=== PATIENT | male | born 1945 | race African-American/Black ===

== ENCOUNTER 2017-01-20 17:59 | Emergency (ER) | payer BC ==
--- NOTE | 2017-01-20 18:21 | Emergency Department Record ---
History of Present Illness - General Chief complaint: Flu Like Symptoms Stated complaint: GARIBAY AND FEELING BAD ALL OVER Time Seen by Provider: 01/20/17 18:01 Source: Patient, RN notes reviewed Mode of Arrival: Ambulatory - History of Present Illness Initial comments: today wake up at 4 am, chilles,fever, coughing , sputum is clearNo chest pain but aches all over, PMH hypertension. Primary Dr is Dr. Neumann. No vomiting , no diarrhea and no nausea. Patient is shaking with a tremor. Patient had breathing test two weeks ago at [facility] and he has not heard the results. Stopped smoking 5 years ago. No heart troubles. Slight headache. Onset/Timin -: Hour(s) Location: Other Severity: Moderate Severity scale (1-10): 7 Quality: Other Consistency: Constant Improves with: Other Worsens with: Other Associated Symptoms: Headaches, Myalgias - Related Data Home Medications Medication Instructions Recorded Confirmed Last Taken Amlodipine Besylate 10 mg PO DAILY 01/21/15 01/20/17 01/20/17 Previous Rx's Medication Instructions Recorded Hydrocodone/Acetaminophen [[place] 1 tab PO Q6H PRN #15 tab 07/07/16 5mg/325mg] Allergies Allergy/AdvReac Type Severity Reaction Status Date / Time Penicillins Allergy PT UNSURE Verified 02/12/16 00:11 OF REACTION Travel Screening - Travel/Exposure Within Last 30 Days Have you traveled within the last 30 days?: No Review of Systems Reviewed: No additional complaints except as noted below Constitutional: Reports: As per HPI. Denies: Chills, Fever, Malaise, Night sweats, Weakness, Weight change Eyes: Reports: As per HPI. Denies: Eye discharge, Eye pain, Photophobia, Vision change ENT: Reports: Congestion Respiratory: Reports: Cough, Dyspnea Cardiovascular: Reports: As per HPI. Denies: Arrhythmia, Chest pain, Dyspnea on exertion, Edema, Murmurs, Orthopnea, Palpitations, Paroxysmal nocturnal dyspnea, Rheumatic Fever, Syncope Endocrine: Reports: As per HPI. Denies: Fatigue, Heat or cold intolerance, Polydipsia, Polyuria Gastrointestinal: Reports: As per HPI. Denies: Abdominal pain, Constipation, Diarrhea, Hematemesis, Hematochezia, Melena, Nausea, Vomiting Genitourinary: Reports: As per HPI. Denies: Dysuria, Frequency, Hematuria, Incontinence, Retention, Testicular pain, Testicular mass, Urgency Musculoskeletal: Reports: As per HPI. Denies: Arthralgia, Back pain, Gout, Joint swelling, Myalgia, Neck pain Skin: Reports: As per HPI. Denies: Bruising, Change in color, Change in hair/ nails, Lesions, Pruritus, Rash Neurological: Reports: As per HPI. Denies: Abnormal gait, Confusion, Headache, Numbness, Paresthesias, Seizure, Tingling, Tremors, Vertigo, Weakness Psychiatric: Reports: As per HPI. Denies: Anxiety, Auditory hallucinations, Depression, Homicidal thoughts, Suicidal thoughts, Visual hallucinations Hematological/Lymphatic: Reports: As per HPI. Denies: Anemia, Blood Clots, Easy bleeding, Easy bruising, Swollen glands Past Medical History - SOCIAL HISTORY Smoking Status: Former smoker Alcohol Use: Heavy Alcohol Use Comment: 2-3 "12 oz cans of Natural Light a day" Drug Use: Rare, Heavy Drug Use Detail:: Marijuana - RESPIRATORY Hx Respiratory Disorders: No - CARDIOVASCULAR Hx Cardio Disorders: Yes Hx Hypertension: Yes - NEURO Hx Neuro Disorders: No Comment:: patient states he has intermittent tremors - GI Hx GI Disorders: No - Hx Genitourinary Disorders: No - ENDOCRINE Hx Endocrine Disorders: No Hx Diabetes: No Hx Thyroid Disease: No - MUSCULOSKELETAL Hx Musculoskeletal Disorders: Yes Hx Gout: Yes Comment:: non compliant with medication/per patient - PSYCH Hx Psych Problems: No - HEMATOLOGY/ONCOLOGY Hx Hematology/Oncology Disorders: No Family Medical History Any Significant Family History?: Yes Hx Cancer: Father Physical Exam - General General Appearance: Alert, Oriented x3, Cooperative, Mild distress - Head Head exam: Normal inspection - Eye Eye exam: Normal appearance, PERRL Pupils: Normal accommodation - ENT ENT exam: Normal exam, Mucous membranes moist, Normal external ear exam, Normal orophraynx, TM's normal bilaterally Ear exam: Normal external inspection. negative: External canal tenderness Nasal Exam: Normal inspection. negative: Discharge, Sinus tenderness Mouth exam: Normal external inspection, Tongue normal Teeth exam: Normal inspection. negative: Dental caries Throat exam: Normal inspection. negative: Tonsillar erythema, Tonsillar exudate - Neck Neck exam: Normal inspection, Full ROM. negative: Tenderness - Respiratory Respiratory exam: Wheezes, Other (tachypnea). negative: Respiratory distress - Cardiovascular Cardiovascular Exam: Regular rate, Normal rhythm, Normal heart sounds - GI/Abdominal GI/Abdominal exam: Soft, Normal bowel sounds. negative: Tenderness - Rectal Rectal exam: Deferred - exam: Deferred - Extremities Extremities exam: Normal inspection, Full ROM, Normal capillary refill. negative: Tenderness - Back Back exam: Reports: Normal inspection, Full ROM. Denies: Muscle spasm, Rash noted, Tenderness - Neurological Neurological exam: Alert, Normal gait, Oriented X3, Reflexes normal - Psychiatric Psychiatric exam: Normal affect, Normal mood - Skin Skin exam: Dry, Intact, Normal color, Warm Course Vital Signs 01/20/17 18:02 Temperature 98.7 F Pulse Rate 94 H Respiratory 26 H Rate Blood Pressure 161/96 Pulse Ox [address] Mc at 7 pm Medical Decision Making - Lab Data Result diagrams: 01/20/17 18:23 01/20/17 18:23 Disposition Clinical Impression: Cough Dyspnea Qualifiers: Dyspnea type: shortness of breath Qualified Code(s): R06.02 - Shortness of breath Forms: Patient Portal Access
[2017-01-20] MEDS ORDERED: 0.9 % SODIUM CHLORIDE 1000ML 1,000 ML IV PRN (18:23)
[2017-01-20] MEDS ORDERED: IPRATROPIUM/ALBUTEROL (0.5MG/3MG) NEB INH ONE (18:24)
[2017-01-20] MEDS ORDERED: METHYLPREDNISOLONE PF 125MG/VIAL IVP ONE (18:40)
[2017-01-20 19:05] LABS: HEMATOCRIT 43.7 % (42.0-52.0); HEMOGLOBIN 15.2 gm/dl (14.0-18.0); MEAN CELL VOLUME 78.6 fl (81-97); MEAN CORPUSCULAR HEMOGLOBIN 27.3 pg (27-33); MEAN CORPUSCULAR HGB CONC 34.8 g/dl (32-36); PLATELET COUNT 314 K/uL (130-400); RED BLOOD COUNT 5.56 M/uL (4.40-5.70); RED CELL DISTRIBUTION WIDTH 14.9 % (11.5-14.5); WHITE BLOOD COUNT W/O DIFF 8.7 K/uL (4.2-12.2)
[2017-01-20 19:18] LABS: ANION GAP 4.8 (7-16); BLOOD UREA NITROGEN 9 mg/dL (9-20); CARBON DIOXIDE 32.2 mmol/L (22-30); CREATININE 1.1 mg/dL (0.66-1.25); EST GLOMERULAR FILTRATION RATE > 60 ml/min; GLUCOSE,RANDOM 97 mg/dL (70-110)
[2017-01-20 19:27] LABS: INFLUENZA A NEGATIVE (NEGATIVE); INFLUENZA B NEGATIVE (NEGATIVE)
[2017-01-20 19:30] LABS: TROPONIN I 0.013 ng/mL (0.00-0.034)
[2017-01-20 19:32] LABS: PLATELET ESTIMATE NORMAL (NORMAL)
[2017-01-20 19:51] LABS: URINE APPEARANCE CLEAR; URINE BILIRUBIN NEGATIVE (NEGATIVE); URINE BLOOD NEGATIVE (NEGATIVE); URINE COLOR YELLOW; URINE GLUCOSE (UA) NEGATIVE (NEGATIVE); URINE KETONE NEGATIVE (NEGATIVE); URINE LEUKOCYTE ESTERASE NEGATIVE (NEGATIVE); URINE NITRITE NEGATIVE (NEGATIVE); URINE UROBILINOGEN 0.2 E.U./dL (0.20 - 1.00)
[2017-01-20 19:53] LABS: AMPHETAMINE SCREEN URINE NOT DETECTED; BARBITURATE SCREEN URINE NOT DETECTED; BENZODIAZEPINE SCREEN URINE NOT DETECTED; COCAINE SCREEN URINE NOT DETECTED; METHADONE SCREEN URINE NOT DETECTED; METHAMPHETAMINE SCREEN NOT DETECTED; OPIATE SCREEN URINE NOT DETECTED; OXYCODONE SCREEN URINE NOT DETECTED; PHENCYCLIDINE SCREEN URINE NOT DETECTED; PROPOXYPHENE SCREEN URINE NOT DETECTED; THC SCREEN URINE NOT DETECTED; TRICYCLIC ANTIDEPRESSANT SCRN NOT DETECTED
[2017-01-20] MEDS ORDERED: ACETAMINOPHEN 500 MG TABLET PO ONE (20:07)
--- NOTE | 2017-01-20 20:41 | Emergency Department Record ---
History of Present Illness - General Chief complaint: Flu Like Symptoms Stated complaint: GARIBAY AND FEELING BAD ALL OVER Time Seen by Provider: 01/20/17 18:01 Source: Patient, RN notes reviewed Mode of Arrival: Ambulatory - History of Present Illness Onset/Timin -: Hour(s) Location: Other Severity: Moderate Severity scale (1-10): 7 Quality: Other Consistency: Constant Improves with: Other Worsens with: Other Associated Symptoms: Headaches, Myalgias - Related Data Home Medications Medication Instructions Recorded Confirmed Last Taken Amlodipine Besylate 10 mg PO DAILY 01/21/15 01/20/17 01/20/17 Previous Rx's Medication Instructions Recorded Hydrocodone/Acetaminophen [[place] 1 tab PO Q6H PRN #15 tab 07/07/16 5mg/325mg] Prednisone [Prednisone 20Mg] 20 mg PO BIDPC #8 tab 01/20/17 Allergies Allergy/AdvReac Type Severity Reaction Status Date / Time Penicillins Allergy PT UNSURE Verified 02/12/16 00:11 OF REACTION Travel Screening - Travel/Exposure Within Last 30 Days Have you traveled within the last 30 days?: No Review of Systems Constitutional: Reports: As per HPI. Denies: Chills, Fever, Malaise, Night sweats, Weakness, Weight change Eyes: Reports: As per HPI. Denies: Eye discharge, Eye pain, Photophobia, Vision change ENT: Reports: Congestion Respiratory: Reports: Cough, Dyspnea Cardiovascular: Reports: As per HPI. Denies: Arrhythmia, Chest pain, Dyspnea on exertion, Edema, Murmurs, Orthopnea, Palpitations, Paroxysmal nocturnal dyspnea, Rheumatic Fever, Syncope Endocrine: Reports: As per HPI. Denies: Fatigue, Heat or cold intolerance, Polydipsia, Polyuria Gastrointestinal: Reports: As per HPI. Denies: Abdominal pain, Constipation, Diarrhea, Hematemesis, Hematochezia, Melena, Nausea, Vomiting Genitourinary: Reports: As per HPI. Denies: Dysuria, Frequency, Hematuria, Incontinence, Retention, Testicular pain, Testicular mass, Urgency Musculoskeletal: Reports: As per HPI. Denies: Arthralgia, Back pain, Gout, Joint swelling, Myalgia, Neck pain Skin: Reports: As per HPI. Denies: Bruising, Change in color, Change in hair/ nails, Lesions, Pruritus, Rash Neurological: Reports: As per HPI. Denies: Abnormal gait, Confusion, Headache, Numbness, Paresthesias, Seizure, Tingling, Tremors, Vertigo, Weakness Psychiatric: Reports: As per HPI. Denies: Anxiety, Auditory hallucinations, Depression, Homicidal thoughts, Suicidal thoughts, Visual hallucinations Hematological/Lymphatic: Reports: As per HPI. Denies: Anemia, Blood Clots, Easy bleeding, Easy bruising, Swollen glands Past Medical History - SOCIAL HISTORY Smoking Status: Former smoker Alcohol Use: Heavy Alcohol Use Comment: 2-3 "12 oz cans of Natural Light a day" Drug Use: Rare, Heavy Drug Use Detail:: Marijuana - RESPIRATORY Hx Respiratory Disorders: No - CARDIOVASCULAR Hx Cardio Disorders: Yes Hx Hypertension: Yes - NEURO Hx Neuro Disorders: No Comment:: patient states he has intermittent tremors - GI Hx GI Disorders: No - Hx Genitourinary Disorders: No - ENDOCRINE Hx Endocrine Disorders: No Hx Diabetes: No Hx Thyroid Disease: No - MUSCULOSKELETAL Hx Musculoskeletal Disorders: Yes Hx Gout: Yes Comment:: non compliant with medication/per patient - PSYCH Hx Psych Problems: No - HEMATOLOGY/ONCOLOGY Hx Hematology/Oncology Disorders: No Family Medical History Any Significant Family History?: Yes Hx Cancer: Father Course Vital Signs 01/20/17 01/20/17 01/20/17 18:02 18:25 20:11 Temperature 98.7 F 98.2 F Pulse Rate 94 H 96 H Pulse Rate [ 88 Pulse Ox Probe] Respiratory 26 H 18 32 H Rate Blood Pressure 161/96 Blood Pressure 147/110 [Left Arm] Pulse Ox 94 L 99 93 L - Reevaluation(s) Reevaluation #1: 01/20/17 20:36 pt is doing better and is ready to go home. Medical Decision Making - Lab Data Result diagrams: 01/20/17 18:40 01/20/17 18:40 Lab Results 01/20/17 01/20/17 01/20/17 Range/Units 13:40 18:40 18:40 WBC 8.7 (4.2-12.2) K/uL RBC 5.56 (4.40-5.70) M/uL Hgb 15.2 (14.0-18.0) gm/dl Hct 43.7 (42.0-52.0) % MCV 78.6 L (81-97) fl MCH 27.3 (27-33) pg MCHC 34.8 (32-36) g/dl RDW 14.9 H (11.5-14.5) % Plt Count 314 (130-400) K/uL MPV 9.0 (7.4-10.4) fl Neutrophils % 68.0 (47-80) % Lymphocytes % 16.0 (16-45) % Monocytes % 15.0 H (0-9) % Eosinophils % 1.0 (0-6) % Basophils % Not Reportable Platelet Estimate Normal (NORMAL) RBC Morphology Normal APTT 25.30 (24.5-39.1) SECONDS Sodium (136-145) mmol/L Potassium (3.5-5.1) mmol/L Chloride (98-107) mmol/L Carbon Dioxide (22-30) mmol/L Anion Gap (7-16) BUN (9-20) mg/dL Creatinine (0.66-1.25) mg/dL Estimated GFR ml/min Random Glucose (70-110) mg/dL Calcium (8.5-10.1) mg/dL CK-MB (CK-2) (0-6) ug/L Troponin I (0.00-0.034) ng/mL Urine Color Urine Appearance Urine pH (5.0-8.0) Ur Specific [place] (1.002-1.030) Urine Protein (NEGATIVE) Urine Glucose (UA) (NEGATIVE) Urine Ketones (NEGATIVE) Urine Blood (NEGATIVE) Urine Nitrite (NEGATIVE) Urine Bilirubin (NEGATIVE) Urine Urobilinogen (0.20 - 1.00) E.U./dL Ur Leukocyte Esterase (NEGATIVE) Urine Opiates Screen Ur Oxycodone Screen Urine Methadone Screen Ur Propoxyphene Screen Ur Barbituates Screen Ur Tricyclics Screen Ur Phencyclidine Scrn Ur Amphetamine Screen U Methamphetamines Scrn U Benzodiazepines Scrn Urine Cocaine Screen Urine Cannabis Screen Ethyl Alcohol (0-0.010) g/dL Influenza Type A Ag (NEGATIVE) Influenza Type B Ag (NEGATIVE) 01/20/17 01/20/17 01/20/17 Range/Units 18:40 18:40 19:10 WBC (4.2-12.2) K/uL RBC (4.40-5.70) M/uL Hgb (14.0-18.0) gm/dl Hct (42.0-52.0) % MCV (81-97) fl MCH (27-33) pg MCHC (32-36) g/dl RDW (11.5-14.5) % Plt Count (130-400) K/uL MPV (7.4-10.4) fl Neutrophils % (47-80) % Lymphocytes % (16-45) % Monocytes % (0-9) % Eosinophils % (0-6) % Basophils % Platelet Estimate (NORMAL) RBC Morphology APTT (24.5-39.1) SECONDS Sodium 133 L (136-145) mmol/L Potassium 4.3 (3.5-5.1) mmol/L Chloride 96 L (98-107) mmol/L Carbon Dioxide 32.2 H (22-30) mmol/L Anion Gap 4.8 L (7-16) BUN 9 (9-20) mg/dL Creatinine 1.1 (0.66-1.25) mg/dL Estimated GFR > 60 ml/min Random Glucose 97 (70-110) mg/dL Calcium 8.9 (8.5-10.1) mg/dL CK-MB (CK-2) 1.0 (0-6) ug/L Troponin I 0.013 (0.00-0.034) ng/mL Urine Color Urine Appearance Urine pH (5.0-8.0) Ur Specific [place] (1.002-1.030) Urine Protein (NEGATIVE) Urine Glucose (UA) (NEGATIVE) Urine Ketones (NEGATIVE) Urine Blood (NEGATIVE) Urine Nitrite (NEGATIVE) Urine Bilirubin (NEGATIVE) Urine Urobilinogen (0.20 - 1.00) E.U./dL Ur Leukocyte Esterase (NEGATIVE) Urine Opiates Screen Ur Oxycodone Screen Urine Methadone Screen Ur Propoxyphene Screen Ur Barbituates Screen Ur Tricyclics Screen Ur Phencyclidine Scrn Ur Amphetamine Screen U Methamphetamines Scrn U Benzodiazepines Scrn Urine Cocaine Screen Urine Cannabis Screen Ethyl Alcohol 0.000 (0-0.010) g/dL Influenza Type A Ag Negative (NEGATIVE) Influenza Type B Ag Negative (NEGATIVE) 01/20/17 01/20/17 Range/Units 19:52 19:52 WBC (4.2-12.2) K/uL RBC (4.40-5.70) M/uL Hgb (14.0-18.0) gm/dl Hct (42.0-52.0) % MCV (81-97) fl MCH (27-33) pg MCHC (32-36) g/dl RDW (11.5-14.5) % Plt Count (130-400) K/uL MPV (7.4-10.4) fl Neutrophils % (47-80) % Lymphocytes % (16-45) % Monocytes % (0-9) % Eosinophils % (0-6) % Basophils % Platelet Estimate (NORMAL) RBC Morphology APTT (24.5-39.1) SECONDS Sodium (136-145) mmol/L Potassium (3.5-5.1) mmol/L Chloride (98-107) mmol/L Carbon Dioxide (22-30) mmol/L Anion Gap (7-16) BUN (9-20) mg/dL Creatinine (0.66-1.25) mg/dL Estimated GFR ml/min Random Glucose (70-110) mg/dL Calcium (8.5-10.1) mg/dL CK-MB (CK-2) (0-6) ug/L Troponin I (0.00-0.034) ng/mL Urine Color Yellow Urine Appearance Clear Urine pH 6.5 (5.0-8.0) Ur Specific [place] 1.020 (1.002-1.030) Urine Protein 30 mg/dl H (NEGATIVE) Urine Glucose (UA) Negative (NEGATIVE) Urine Ketones Negative (NEGATIVE) Urine Blood Negative (NEGATIVE) Urine Nitrite Negative (NEGATIVE) Urine Bilirubin Negative (NEGATIVE) Urine Urobilinogen 0.2 (0.20 - 1.00) E.U./dL Ur Leukocyte Esterase Negative (NEGATIVE) Urine Opiates Screen Not detected Ur Oxycodone Screen Not detected Urine Methadone Screen Not detected Ur Propoxyphene Screen Not detected Ur Barbituates Screen Not detected Ur Tricyclics Screen Not detected Ur Phencyclidine Scrn Not detected Ur Amphetamine Screen Not detected U Methamphetamines Scrn Not detected U Benzodiazepines Scrn Not detected Urine Cocaine Screen Not detected Urine Cannabis Screen Not detected Ethyl Alcohol (0-0.010) g/dL Influenza Type A Ag (NEGATIVE) Influenza Type B Ag (NEGATIVE) Disposition Disposition: Discharge Clinical Impression: Cough, Chronic obstructive pulmonary disease with acute exacerbation Dyspnea Qualifiers: Dyspnea type: shortness of breath Qualified Code(s): R06.02 - Shortness of breath Disposition: Home, Self-Care Condition: (1) Good Instructions: Chronic Obstructive Pulmonary Disease (ED), Pulmonary Fibrosis ( ED) Additional Instructions: 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 return sooner if worse. Prescriptions: Prednisone [Prednisone 20Mg] 20 mg PO BIDPC #8 tab Forms: Patient Portal Access
--- NOTE | 2017-01-22 13:27 | RADIOLOGY REPORT ---
EXAM: CHEST, TWO VIEWS HISTORY: PATIENT HAS A HEADACHE IN THE FOREHEAD. TECHNIQUE: Two views of the chest were provided along with the comparison study dated 07/07/16. FINDINGS: The cardiomediastinal silhouette is within normal limits for size and contour. Tortuosity of the thoracic aorta is noted. The sarkis appear unremarkable. Diffuse interstitial prominence is again noted suggesting chronic interstitial disease. No pneumothorax is noted. No obvious new, focal areas of consolidation are identified. No new pleural effusions are identified. IMPRESSION: FINDINGS ARE CONSISTENT WITH PULMONARY FIBROSIS. NO NEW AREAS OF FOCAL CONSOLIDATION OR PLEURAL EFFUSIONS ARE IDENTIFIED. NO PNEUMOTHORAX IS NOTED. FOLLOW-UP PA AND LATERAL VIEWS OF THE CHEST CAN BE OBTAINED IF CLINICALLY INDICATED. JOB NUMBER: [id number] MTDD
== END 2017-01-20 20:47 | disposition home or self-care (01) ==
LOC: ER 17:59
DX: J44.1 Chronic obstructive pulmonary disease with (acute) exacerbation (principal); R06.02 Shortness of breath; I10 Essential (primary) hypertension; Z87.891 Personal history of nicotine dependence; Z79.899 Other long term (current) drug therapy
CPT/HCPCS: 99284 ×2; 96374; 85730; 82553; 84484; 80048; 81003; 80305; 87400; 85027; 71020; 94640; 93005; 93010; G0480; 80320; J2930

== ENCOUNTER 2017-01-26 09:55 | Inpatient (IN) | payer BC ==
[2017-01-26] MEDS ORDERED: IPRATROPIUM/ALBUTEROL (0.5MG/3MG) NEB INH ONE (10:13)
[2017-01-26] MEDS ORDERED: METHYLPREDNISOLONE PF 125MG/VIAL IVP ONE (10:17)
--- NOTE | 2017-01-26 10:21 | Emergency Department Record ---
History of Present Illness - General Chief Complaint: Difficulty Breathing Stated Complaint: DIFFICULTY BREATHING Time Seen by Provider: 01/26/17 10:13 Source: Patient Mode of Arrival: Ambulatory Limitations: No limitations - History of Present Illness Initial Comments: 71 yo male presents to ED with a CC of difficulty breathing and cough symptoms for the past several days. Patient denies fevers or chills, and denies previous heart or lung problems. Patient reports productive cough symptoms and difficulty breathing for 5 days, denies chest discomfort or pain symptoms. Patient reports a previous history of HTN. MD Complaint: Cough, Shortness of breath Onset/Timin -: Days(s) Radiation: Other Severity scale (1-10): 10 Quality: Aching Consistency: Constant Improves With: Nothing Worsens With: Coughing Associated Symptoms: Denies other symptoms Treatments Prior to Arrival: None - Related Data Home Oxygen Therapy: No Home Medications Medication Instructions Recorded Confirmed Last Taken Amlodipine Besylate 10 mg PO DAILY 01/21/15 01/26/17 01/25/17 Previous Rx's Medication Instructions Recorded Hydrocodone/Acetaminophen [[place] 1 tab PO Q6H PRN #15 tab 07/07/16 5mg/325mg] Allergies Allergy/AdvReac Type Severity Reaction Status Date / Time Penicillins Allergy PT UNSURE Verified 02/12/16 00:11 OF REACTION Travel Screening - Travel/Exposure Within Last 30 Days Have you traveled within the last 30 days?: No - Travel/Exposure Within Last Year Have you traveled outside the [place] in the last year?: No - Additonal Travel Details Have you been exposed to anyone with a communicable illness?: No - Travel Symptoms Symptom Screening: None Review of Systems Constitutional: Denies: Chills, Fever, Malaise, Night sweats Eyes: Denies: Eye discharge, Eye pain ENT: Reports: Congestion. Denies: Ear pain, Epistaxis Respiratory: Reports: Cough, Dyspnea, Wheezes Cardiovascular: Reports: Dyspnea on exertion. Denies: Chest pain Endocrine: Denies: Fatigue, Heat or cold intolerance Gastrointestinal: Denies: Abdominal pain, Nausea, Vomiting Genitourinary: Denies: Incontinence, Retention, Testicular pain Musculoskeletal: Denies: Arthralgia, Back pain, Gout, Joint swelling Skin: Denies: Bruising, Change in color Neurological: Denies: Abnormal gait, Confusion, Headache, Seizure Psychiatric: Denies: Anxiety Hematological/Lymphatic: Denies: Anemia, Blood Clots Past Medical History - SOCIAL HISTORY Smoking Status: Former smoker Alcohol Use: Heavy Drug Use: None - RESPIRATORY Hx Respiratory Disorders: No - CARDIOVASCULAR Hx Cardio Disorders: Yes Hx Hypertension: Yes - NEURO Hx Neuro Disorders: No Comment:: patient states he has intermittent tremors - GI Hx GI Disorders: No - Hx Genitourinary Disorders: No - ENDOCRINE Hx Endocrine Disorders: No Hx Diabetes: No Hx Thyroid Disease: No - MUSCULOSKELETAL Hx Musculoskeletal Disorders: Yes Hx Gout: Yes Comment:: non compliant with medication/per patient - PSYCH Hx Psych Problems: No - HEMATOLOGY/ONCOLOGY Hx Hematology/Oncology Disorders: No Family Medical History Any Significant Family History?: No Hx Cancer: Father Physical Exam - General General Appearance: Alert, Oriented x3, Cooperative, Moderate distress Limitations: No limitations - Head Head exam: Atraumatic, Normocephalic, Normal inspection Head exam detail: negative: Abrasion, Contusion, Infante's sign, General tenderness, Hematoma, Laceration - Eye Eye exam: Normal appearance. negative: Conjunctival injection, Periorbital swelling, Periorbital tenderness, Scleral icterus - ENT Ear exam: negative: Auricular hematoma, Auricular trauma Nasal Exam: negative: Active bleeding, Discharge, Dried blood, Foreign body Mouth exam: negative: Drooling, Laceration, Muffled voice, Tongue elevation - Neck Neck exam: Normal inspection. negative: Meningismus, Tenderness - Respiratory Respiratory exam: Decreased breath sounds, Other (crackles right upper/lower lung mackenzie) - Cardiovascular Cardiovascular Exam: Regular rate, Normal rhythm, Normal heart sounds - GI/Abdominal GI/Abdominal exam: Soft. negative: Rebound, Rigid, Tenderness - Rectal Rectal exam: Deferred - exam: Deferred - Extremities Extremities exam: Normal inspection. negative: Calf tenderness, Pedal edema, Tenderness - Back Back exam: Denies: CVA tenderness (R), CVA tenderness (L) - Neurological Neurological exam: Alert, Normal gait, Oriented X3 - Psychiatric Psychiatric exam: Normal affect, Normal mood - Skin Skin exam: Normal color. negative: Abrasion Type of lesion: negative: abrasion Course Vital Signs 01/26/17 09:59 Temperature 99.1 F Pulse Rate 95 H Respiratory 32 H Rate Blood Pressure 181/112 Pulse Ox 88 L - Reevaluation(s) Reevaluation #1: 01/26/17 11:05 CXR: Findings c/w pulmonary fibrosis, no acute findings. Reevaluation #2: 01/26/17 11:09 Labs reviewed, CO2 34, likely c/w chronic PCO2 retention. Labs are otherwise grossly unremarkable for an acute process. Reevaluation #3: 01/26/17 11:13 EKG: NSR 83 Normal axis, normal intervals T wave inversion AVL, V5-V6 Unchanged from 01/20/17. Reevaluation #4: 01/26/17 11:32 Ambulation trial performed, biox 91-93% on RA, however patient's respiratory rate increased following trial to 32 breaths/minute. Will discuss admission for observation for probable COPD exacerbation. Reevaluation #5: 01/26/17 11:38 Case was discussed with Dr. Norris, will admit for observation pending RSV/ Influenza results. Medical Decision Making - Lab Data Result diagrams: 01/26/17 10:30 01/26/17 10:30 Disposition Disposition: Admit Clinical Impression: COPD with acute exacerbation Disposition: Still a Patient at [facility] Decision to Admit: Admit from ER Decision to Admit Date: 01/26/17 Decision to Admit Time: 11:34 Forms: Patient Portal Access Time of Disposition: 11:34
[2017-01-26] MEDS ORDERED: 0.9 % SODIUM CHLORIDE 1000ML 1,000 ML IV SCH (10:30)
[2017-01-26 10:50] LABS: HEMATOCRIT 45.4 % (42.0-52.0); HEMOGLOBIN 15.6 gm/dl (14.0-18.0); MEAN CELL VOLUME 79.4 fl (81-97); MEAN CORPUSCULAR HGB CONC 34.4 g/dl (32-36); MEAN PLATELET VOLUME 9.8 fl (7.4-10.4); PLATELET COUNT 274 K/uL (130-400); RED BLOOD COUNT 5.72 M/uL (4.40-5.70); RED CELL DISTRIBUTION WIDTH 14.9 % (11.5-14.5)
[2017-01-26 10:52] LABS: MEAN CORPUSCULAR HEMOGLOBIN 27.2 pg (27-33)
[2017-01-26 11:03] LABS: ALB/GLOB RATIO 1.2 (1.1-1.8); ALBUMIN 4.1 gm/dL (3.5-5.0); ALKALINE PHOSPHATASE 99 U/L (38-126); ALT/SGPT 25 U/L (21-72); ANION GAP 7.1 (7-16); AST/SGOT 26 U/L (17-59); BILIRUBIN,TOTAL 0.63 mg/dL (0.2-1.3); BLOOD UREA NITROGEN 12 mg/dL (9-20); CARBON DIOXIDE 33.9 mmol/L (22-30); CREATININE 1.1 mg/dL (0.66-1.25); EST GLOMERULAR FILTRATION RATE > 60 ml/min; GLUCOSE,RANDOM 97 mg/dL (70-110); TOTAL PROTEIN 7.5 gm/dL (6.3-8.2)
[2017-01-26 11:59] LABS: INFLUENZA A NEGATIVE (NEGATIVE); INFLUENZA B NEGATIVE (NEGATIVE)
[2017-01-26] MEDS ORDERED: HYDROCODONE/APAP 5/325MG TABLET PO PRN (13:46)
[2017-01-26] MEDS ORDERED: ALBUTEROL SULFATE (0.083%) 2.5 MG/3 ML NEB INH PRN (13:46)
[2017-01-26] MEDS: IPRATROPIUM/ALBUTEROL (0.5MG/3MG) NEB INH SCH ×2 (14:49→18:49)
[2017-01-26] MEDS: 0.9 % SODIUM CHLORIDE 1000ML 1,000 ML IV PRN (16:44)
[2017-01-26] MEDS ORDERED: METHYLPREDNISOLONE PF 125MG/VIAL IVP SCH (18:00)
[2017-01-26] MEDS: LEVOFLOXACIN/D5W 750 MG in DEXTROSE 1 BAG IVPB SCH (19:04)
[2017-01-26] MEDS: METHYLPREDNISOLONE PF 125MG/VIAL IVP SCH (23:07)
[2017-01-27] MEDS: METHYLPREDNISOLONE PF 125MG/VIAL IVP SCH ×5 (00:39→23:04)
[2017-01-27] MEDS ORDERED: DIPHENHYDRAMINE HCL 25 MG CAPSULE PO PRN (01:49)
[2017-01-27] MEDS: 0.9 % SODIUM CHLORIDE 1000ML 1,000 ML IV PRN ×2 (04:10→17:07)
[2017-01-27] MEDS: IPRATROPIUM/ALBUTEROL (0.5MG/3MG) NEB INH SCH ×6 (05:32→23:30)
--- NOTE | 2017-01-27 07:14 | RADIOLOGY REPORT ---
EXAM: AP CHEST HISTORY: DIFFICULTY BREATHING, ACUTE GENERALIZED CHEST PAIN ON PREDNISONE. TECHNIQUE: AP view of the chest was obtained. Comparison: Chest CT 07/07/16, chest x-ray 01/20/17. FINDINGS: Fine coarse reticular opacity in the peripheral lung mackenzie consistent with mild to moderate pulmonary fibrosis. No dense infiltrate. The cardiac silhouette is moderately enlarged. The diaphragm and osseous structures are unremarkable. IMPRESSION: MILD TO MODERATE PULMONARY FIBROSIS. CARDIOMEGALY. NO ACUTE PROCESS. JOB NUMBER: [id number] MTDD
[2017-01-27] MEDS: LEVOFLOXACIN/D5W 750 MG in DEXTROSE 1 BAG IVPB SCH (09:33)
[2017-01-27] MEDS: AMLODIPINE BESYLATE 5MG TAB PO SCH (09:35)
[2017-01-27] MEDS ORDERED: METHYLPREDNISOLONE PF 125MG/VIAL IVP SCH ×2 (10:00)
[2017-01-27] MEDS: OSTELTAMIVIR 75 MG CAP PO SCH ×2 (12:18→22:42)
--- NOTE | 2017-01-27 14:54 | History & Physical ---
History of Present Illness - Date of Service Date of Service for History & Physical: 01/28/17 - History of Present Illness Admitting Diagnosis: COPD exacerbation History of Present Illness: 71 y/o M admitted for COPD exacerbation. PMH: HTN, questionable COPD, former smoker, ETOH use, gout. History obtained from patient. Presented to ED for 5 day history of cough, chest congestion, body aches and progressive DOROTHY. Was seen by PCP and given oral steroids with no improvement. Upon arrival to ED T 99.1, P 95, RR 32, BP 181/112, SPO2 88% RA. WBC 8.o, hgb 15.6, hct 45.4, plt 274, CO2 33.9, Cl 95. Influenza PCR sent to lab. CXR c/w pulmonary fibrosis, no acute findings. EKG NSR, t wave inversion AVL, V5-V6 unchanged from 01/20/17. Pt presented with 88-89% RA. Pt placed on 2L O2. Sats increased to 97%.ED ambulatory trial on RA with biox 91-93% but RR increased with 32 breaths/min. Patient's oxygen improved after given DuoNeb and oxygen in the ED. 01/27/17- Patient transferred to the floor 01/26. Laying in bed comfortably. Reports breathing has improved since yesterday. Has been recently referred to a lurer in [place] for work up of possible COPD but has not seen for initial appointment yet. 2 weeks ago had PFT done at [facility] in preparation for pulmonology appointment. Was previously hospitalized for respiratory difficulty about a month ago. These records are not available at this time. Is a previous smoker. 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 ETOH history of 2-3 12oz cans of beer per day, last drink 2-3 days ago. Has been on steroids in the last 30 days so Solumedrol 0.5mg/kg q 6 hrs initiated, Levaquin 750mg IVPB started, DuoNeb q 4 hrs WA and albuterol neb q 2 hrs PRN continued from ED. Admitted for further medical management PCP: Dr Radhika Neumann Travel Screening - Travel/Exposure Within Last 30 Days Have you traveled within the last 30 days?: No - Travel/Exposure Within Last Year Have you traveled outside the [place] in the last year?: No - Additonal Travel Details Have you been exposed to anyone with a communicable illness?: No - Travel Symptoms Symptom Screening: None Review of Systems Constitutional: Denies: Chills, Fever, Malaise, Night sweats Eyes: Denies: Eye discharge, Eye pain ENT: Reports: Congestion. Denies: Ear pain, Epistaxis Respiratory: Reports: Cough, Dyspnea, Wheezes Cardiovascular: Reports: Dyspnea on exertion. Denies: Chest pain Endocrine: Denies: Fatigue, Heat or cold intolerance Gastrointestinal: Denies: Abdominal pain, Nausea, Vomiting Genitourinary: Denies: Incontinence, Retention, Testicular pain Musculoskeletal: Denies: Arthralgia, Back pain, Gout, Joint swelling Skin: Denies: Bruising, Change in color Neurological: Denies: Abnormal gait, Confusion, Headache, Seizure Psychiatric: Denies: Anxiety Hematological/Lymphatic: Denies: Anemia, Blood Clots Past Medical History - SOCIAL HISTORY Smoking Status: Former smoker Alcohol Use: Occassional Alcohol Use Comment: States drinks three beer daily Drug Use: None - RESPIRATORY Hx Respiratory Disorders: No - CARDIOVASCULAR Hx Cardio Disorders: Yes Hx Hypertension: Yes - NEURO Hx Neuro Disorders: No Comment:: patient states he has intermittent tremors - GI Hx GI Disorders: No - Hx Genitourinary Disorders: No - ENDOCRINE Hx Endocrine Disorders: No Hx Diabetes: No Hx Thyroid Disease: No - MUSCULOSKELETAL Hx Musculoskeletal Disorders: Yes Hx Gout: Yes Comment:: non compliant with medication/per patient - PSYCH Hx Psych Problems: No - HEMATOLOGY/ONCOLOGY Hx Hematology/Oncology Disorders: No Family Medical History Any Significant Family History?: No Hx Cancer: Father Hx Stroke: Mother H&P Meds/Allergies - Allergies Allergies: Allergies Allergy/AdvReac Type Severity Reaction Status Date / Time Penicillins Allergy PT UNSURE Verified 02/12/16 00:11 OF REACTION - Home Medications Home Medications Medication Instructions Recorded Confirmed Last Taken Amlodipine Besylate 10 mg PO DAILY 01/21/15 01/26/17 01/25/17 Previous Rx's Medication Instructions Recorded Hydrocodone/Acetaminophen [[place] 1 tab PO Q6H PRN #15 tab 07/07/16 5mg/325mg] - Active Medications Active Medications: Current Medications Hydrocodone Bitart/Acetaminophen ([place] 5mg/325mg) 1 each PO Q6H PRN PRN Reason: Pain - General Albuterol Sulfate () 2.5 mg INH RESP.Q4H PRN PRN Reason: DIFFICULTY IN BREATHING Albuterol/Ipratropium (Duoneb) 3 ml INH RESP.Q4H.WA [facility] Last Admin: 01/27/17 14:23 Dose: 3 ml Amlodipine Besylate (Norvasc) 10 mg PO DAILY [facility] Last Admin: 01/27/17 09:35 Dose: 10 mg Diphenhydramine HCl (Benadryl Capsule) 25 mg PO Q4H PRN PRN Reason: URTICARIA/INSOMNIA Sodium Chloride () 1,000 mls @ 100 mls/hr IV .Q10H PRN PRN Reason: LARGE VOLUME IV Last Admin: 01/27/17 04:10 Dose: 100 mls/hr Levofloxacin/Dextrose 750 mg/ (Glucose) 150 mls @ 125 mls/hr IVPB DAILY [facility] Stop: 01/31/17 16:46 Last Admin: 01/27/17 09:33 Dose: 125 mls/hr Methylprednisolone Sodium Succinate (Solu-Medrol) 46 mg IVP Q6HR [facility] Last Admin: 01/27/17 12:18 Dose: 46 mg Oseltamivir Phosphate (Tamiflu) 75 mg PO Q12HR [facility] Last Admin: 01/27/17 12:18 Dose: 75 mg Physical Exam - Vital Signs Vital Signs: Vital Signs - Last 24 Hrs Temp Pulse Pulse Resp BP Pulse Ox 01/27/17 14:24 80 15 98 01/27/17 13:00 97.7 F 88 16 142/84 95 01/27/17 10:30 75 18 01/27/17 09:00 62 18 01/27/17 06:55 72 18 01/27/17 05:00 97.8 F 62 20 155/93 99 01/26/17 20:04 98.0 F 84 20 139/70 99 01/26/17 18:54 79 20 100 - General General Appearance: Alert, Oriented x3, Cooperative, Mild distress (mild ROBERSON) Limitations: No limitations - Head Head exam: Atraumatic, Normocephalic, Normal inspection Head exam detail: negative: Abrasion, Contusion, Infante's sign, General tenderness, Hematoma, Laceration - Eye Eye exam: Normal appearance. negative: Conjunctival injection, Periorbital swelling, Periorbital tenderness, Scleral icterus - ENT Ear exam: negative: Auricular hematoma, Auricular trauma Nasal Exam: negative: Active bleeding, Discharge, Dried blood, Foreign body Mouth exam: negative: Drooling, Laceration, Muffled voice, Tongue elevation - Neck Neck exam: Normal inspection. negative: Meningismus, Tenderness - Respiratory Respiratory exam: Decreased breath sounds, Other (crackles right upper/lower lung mackenzie) - Cardiovascular Cardiovascular Exam: Regular rate, Normal rhythm, Normal heart sounds - GI/Abdominal GI/Abdominal exam: Soft. negative: Rebound, Rigid, Tenderness - Rectal Rectal exam: Deferred - exam: Deferred - Extremities Extremities exam: Normal inspection. negative: Calf tenderness, Pedal edema, Tenderness - Back Back exam: Denies: CVA tenderness (R), CVA tenderness (L) - Neurological Neurological exam: Alert, Normal gait, Oriented X3 - Psychiatric Psychiatric exam: Normal affect, Normal mood - Skin Skin exam: Normal color. negative: Abrasion Type of lesion: negative: abrasion Results - Labs Result Diagrams: 01/26/17 10:30 01/26/17 10:30 Labs Last 24 Hours: Laboratory Results - last 24 hr 01/26/17 13:35 Influenza Virus (PCR) Detected H Specimen Comment Nasopharyngeal VTE H&P Assessment - Risk for VTE Risk for VTE: Yes Risk Level: Moderate Risk Assessment Date: 01/27/17 Risk Assessment Time: 15:39 VTE Orders Placed or Will Be Placed: Yes Plan - Inpatient Certification Inpatient Certification: Admit to inpatient care: Based on my medical assessment, after consideration of patient's risk factors (age, co-morbidities and patient presenting symptoms and acuity), I expect that this patient will remain in the hospital greater than or equal to two midnights and that the services needed warrant inpatient care because: Patient Risk Factors: [advanced age, chronic lung disease, hypoxia] Estimated length of stay: [48-72 hours] The patient may reasonably be expected to be discharged or transferred to a hospital within 96 hours after admission to [facility]. Services needed: [IV antibiotics, oxygen] Post hospital care (if known): [] I certify that my determination is in accordance with my understanding of Medicare requirements for reasonable and necessary inpatient services. 01/28/17 15:15 - Detailed Diagnosis and Plan (1) COPD with acute exacerbation Current Visit: Yes Status: Acute Base Code: J44.1 - CHRONIC OBSTRUCTIVE PULMONARY DISEASE W (ACUTE) EXACERBATION Comment: 01/28/17- Admitted with CC DOROTHY, SPO2 88% RA, failed outpatient treatment of oral steroids. CXR on admit- mild to moderate pulmonary fibrosis, no active process. COPD pathway initiated on admit with DuoNeb Q4hr WA with albuterol q 2hr PRN, solumedrol 0.5mg/kg Q 6 hrs x 2 days, O2 @ 2l, Levaquin 750mg IVPB q 24 hrs, Respiratory viral panel + influenza B. Clinical improvement of symptoms today, SPO2 94% RA - Change IV Levaquin to PO - Change Solumedrol to Prednisone 60mg QD - Saline lock IV - requested nursing to obtain records from last inpatient stay at [facility] - message left with Dr Neumann office to obtain more indepth history of current respiratory work up already in progress per patient report - Plan to DC home after cardiology consult tomorrow - Follow up with PCP in 2 weeks and pulmonology consult as previously scheduled (2) Influenza B Current Visit: Yes Status: Acute Base Code: J10.1 - FLU DUE TO OTH IDENT INFLUENZA VIRUS W OTH RESP MANIFEST Comment: 01/28/17- respiratory viral panel + influenza B - Tamiflu 75mg BID for 5 day total treatment - Droplet iso (3) EtOH dependence Current Visit: Yes Status: Acute Base Code: F10.20 - ALCOHOL DEPENDENCE, UNCOMPLICATED Comment: 01/28/17- 2-3 12oz beers daily, last alcoholic beverage 2-3 days ago. CIWA initated q 2 hours 01/26 with consistent scoring of 0, VSS, no agitation, diaphoresis, confusion - DC CIWA assessments (4) HTN (hypertension) Current Visit: Yes Status: Acute Base Code: I10 - ESSENTIAL (PRIMARY) HYPERTENSION Comment: 01/28/17- Continue Amlodipine 10mg per home dosing. BP ranges 142/84 - 169/109. Patient reported cardiac stress test last year at [facility] (no report available). 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 Lovenox 40mg QD during this hospitalization (6) Full code status Current Visit: Yes Status: Acute Base Code: Z78.9 - OTHER SPECIFIED HEALTH STATUS Comment: 01/28/17- will remain full code status during this hospitalization
[2017-01-27] MEDS: DIPHENHYDRAMINE HCL 25 MG CAPSULE PO PRN (22:42)
[2017-01-28] MEDS: IPRATROPIUM/ALBUTEROL (0.5MG/3MG) NEB INH SCH ×6 (04:40→21:55)
[2017-01-28] MEDS: 0.9 % SODIUM CHLORIDE 1000ML 1,000 ML IV PRN (04:45)
[2017-01-28] MEDS: METHYLPREDNISOLONE PF 125MG/VIAL IVP SCH ×2 (05:08→14:36)
[2017-01-28] MEDS: LEVOFLOXACIN/D5W 750 MG in DEXTROSE 1 BAG IVPB SCH (09:55)
[2017-01-28] MEDS: ENOXAPARIN 40 MG/0.4 ML SYR SQ SCH (09:55)
[2017-01-28] MEDS: OSTELTAMIVIR 75 MG CAP PO SCH ×2 (09:56→23:51)
[2017-01-28] MEDS: AMLODIPINE BESYLATE 5MG TAB PO SCH (09:56)
[2017-01-28] MEDS: HYDROCHLOROTHIAZIDE 25 MG TABLET PO SCH (14:36)
--- NOTE | 2017-01-28 14:45 | Physician Progress Note ---
Subjective - Date Date of Physician Progress Note: 01/28/17 - Subjective Subjective Comment: Overall reports feeling much better. Cough has improved, no further DOROTHY. Denies headache, CP, palpitations, syncope, tinnitus, epistaxis. Admits to having a cardiac stress test 1 year ago with [facility] but is unable to recall results. Has never followed with a air cargo agent. PCP has been managing HTN. Objective - Vital Signs Vital Signs: Vital Signs - Last 24 Hrs Temp Pulse Pulse Resp BP Pulse Ox 01/28/17 13:29 84 16 96 01/28/17 10:22 80 94 L 01/28/17 10:19 88 16 96 01/28/17 08:15 98.6 F 84 169/109 94 L 01/28/17 04:45 97.6 F 72 16 159/102 100 01/27/17 20:45 98.0 F 94 H 24 146/89 95 01/27/17 19:20 80 16 - General General Appearance: Alert, Oriented x3, Cooperative, No acute distress Limitations: No limitations - Head Head exam: Atraumatic, Normocephalic, Normal inspection Head exam detail: negative: Abrasion, Contusion, Infante's sign, General tenderness, Hematoma, Laceration - Eye Eye exam: Normal appearance. negative: Conjunctival injection, Periorbital swelling, Periorbital tenderness, Scleral icterus - ENT ENT exam: Normal exam Ear exam: Normal external inspection. negative: Auricular hematoma, Auricular trauma Nasal Exam: Normal inspection. negative: Active bleeding, Discharge, Dried blood, Foreign body Mouth exam: negative: Drooling, Laceration, Muffled voice, Tongue elevation - Neck Neck exam: Normal inspection. negative: Meningismus, Tenderness - Respiratory Respiratory exam: Other (fine crackles right upper/lower lung mackenzie ) - Cardiovascular Cardiovascular Exam: Regular rate, Normal rhythm, Normal heart sounds - GI/Abdominal GI/Abdominal exam: Soft. negative: Rebound, Rigid, Tenderness - Rectal Rectal exam: Deferred - exam: Deferred - Extremities Extremities exam: Normal inspection. negative: Calf tenderness, Pedal edema, Tenderness - Back Back exam: Denies: CVA tenderness (R), CVA tenderness (L) - Neurological Neurological exam: Alert, Normal gait, Oriented X3 - Psychiatric Psychiatric exam: Normal affect, Normal mood - Skin Skin exam: Normal color. negative: Abrasion Type of lesion: negative: abrasion Assessment and Plan - Inpatient Certification Inpatient Certification: Admit to inpatient care: Based on my medical assessment, after consideration of patient's risk factors (age, co-morbidities and patient presenting symptoms and acuity), I expect that this patient will remain in the hospital greater than or equal to two midnights and that the services needed warrant inpatient care because: Patient Risk Factors: [advanced age, hypoxia, chronic lung disease] Estimated length of stay: [48-72 hours] The patient may reasonably be expected to be discharged or transferred to a hospital within 96 hours after admission to [facility]. Services needed: [oxygen, IV antibiotics, HTN management] Post hospital care (if known): [] I certify that my determination is in accordance with my understanding of Medicare requirements for reasonable and necessary inpatient services. 01/28/17 14:40 - Assessment and Plan (1) COPD with acute exacerbation Current Visit: Yes Status: Acute Base Code: J44.1 - CHRONIC OBSTRUCTIVE PULMONARY DISEASE W (ACUTE) EXACERBATION Comment: 01/28/17- Admitted with CC DOROTHY, SPO2 88% RA, failed outpatient treatment of oral steroids. CXR on admit- mild to moderate pulmonary fibrosis, no active process. COPD pathway initiated on admit with DuoNeb Q4hr WA with albuterol q 2hr PRN, solumedrol 0.5mg/kg Q 6 hrs x 2 days, O2 @ 2l, Levaquin 750mg IVPB q 24 hrs, Respiratory viral panel + influenza B. Clinical improvement of symptoms today, SPO2 94% RA - Change IV Levaquin to PO - Change Solumedrol to Prednisone 60mg QD - Saline lock IV - requested nursing to obtain records from last inpatient stay at [facility] - message left with Dr Neumann office to obtain more indepth history of current respiratory work up already in progress per patient report - Plan to DC home after cardiology consult tomorrow - Follow up with PCP in 2 weeks and pulmonology consult as previously scheduled (2) Influenza B Current Visit: Yes Status: Acute Base Code: J10.1 - FLU DUE TO OTH IDENT INFLUENZA VIRUS W OTH RESP MANIFEST Comment: 01/28/17- respiratory viral panel + influenza B - Tamiflu 75mg BID for 5 day total treatment - Droplet iso (3) EtOH dependence Current Visit: Yes Status: Acute Base Code: F10.20 - ALCOHOL DEPENDENCE, UNCOMPLICATED Comment: 01/28/17- 2-3 12oz beers daily, last alcoholic beverage 2-3 days ago. CIWA initated q 2 hours 01/26 with consistent scoring of 0, VSS, no agitation, diaphoresis, confusion - DC CIWA assessments (4) HTN (hypertension) Current Visit: Yes Status: Acute Base Code: I10 - ESSENTIAL (PRIMARY) HYPERTENSION Comment: 01/28/17- Continue Amlodipine 10mg per home dosing. BP ranges 142/84 - 169/109. Patient reported cardiac stress test last year at [facility] (no report available). 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 Lovenox 40mg QD during this hospitalization (6) Full code status Current Visit: Yes Status: Acute Base Code: Z78.9 - OTHER SPECIFIED HEALTH STATUS Comment: 01/28/17- will remain full code status during this hospitalization Results - Labs Result Diagrams: 01/26/17 10:30 01/26/17 10:30 DVT/PE Assessment - Risk for VTE Risk for VTE: No Risk Level: Moderate Risk Assessment Date: 01/27/17 Risk Assessment Time: 15:39 VTE Orders Placed or Will Be Placed: Yes - Active Medicaitons Current Medications: Current Medications Hydrocodone Bitart/Acetaminophen ([place] 5mg/325mg) 1 each PO Q6H PRN PRN Reason: Pain - General Albuterol Sulfate () 2.5 mg INH RESP.Q4H PRN PRN Reason: DIFFICULTY IN BREATHING Albuterol/Ipratropium (Duoneb) 3 ml INH RESP.Q4H.WA [facility] Last Admin: 01/28/17 13:28 Dose: 3 ml Amlodipine Besylate (Norvasc) 10 mg PO DAILY [facility] Last Admin: 01/28/17 09:56 Dose: 10 mg Diphenhydramine HCl (Benadryl Capsule) 25 mg PO Q4H PRN PRN Reason: URTICARIA/INSOMNIA Last Admin: 01/27/17 22:42 Dose: 25 mg Enoxaparin Sodium (Lovenox) 40 mg SQ DAILY [facility] Last Admin: 01/28/17 09:55 Dose: 40 mg Hydrochlorothiazide (Hctz 25mg) 25 mg PO DAILY [facility] Last Admin: 01/28/17 14:36 Dose: 25 mg [facility]ofloxacin ([facility]quin Tab) [facility] Oseltamivir Phosphate (Tamiflu) 75 mg PO Q12HR [facility] Last Admin: 01/28/17 09:56 Dose: 75 mg AMI Plan - Labs Result Diagrams: 01/26/17 10:30 01/26/17 10:30
[2017-01-28] MEDS: DIPHENHYDRAMINE HCL 25 MG CAPSULE PO PRN (23:51)
[2017-01-29] MEDS ORDERED: LEVOFLOXACIN 500 MG TABLET PO SCH (06:00)
[2017-01-29] MEDS: IPRATROPIUM/ALBUTEROL (0.5MG/3MG) NEB INH SCH ×2 (06:05→09:30)
[2017-01-29] MEDS ORDERED: PREDNISONE 20 MG TAB PO SCH (08:00)
[2017-01-29] MEDS: AMLODIPINE BESYLATE 5MG TAB PO SCH (10:37)
[2017-01-29] MEDS: OSTELTAMIVIR 75 MG CAP PO SCH (10:37)
[2017-01-29] MEDS: ENOXAPARIN 40 MG/0.4 ML SYR SQ SCH (10:37)
[2017-01-29] MEDS: HYDROCHLOROTHIAZIDE 25 MG TABLET PO SCH (10:37)
--- NOTE | 2017-01-29 10:44 | Discharge Summary ---
Providers Discharge Summary Date: 01/29/17 Date of admission: 01/26/17 12:50 Expected Date of Discharge: 01/29/17 Attending physician: FELIZ BROWN Primary care physician: ROSALIND CABALLERO M.D. 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?: [facility] Physical Exam - Vital Signs Vital Signs: Vital Signs - Last 24 Hrs Temp Pulse Pulse Pulse Resp BP Pulse Ox 01/29/17 08:40 70 20 01/29/17 06:05 82 20 96 01/29/17 03:55 72 147/84 01/29/17 00:24 97.9 F 68 18 167/95 96 01/28/17 21:55 73 20 96 01/28/17 18:10 98.2 F 98 H 20 148/68 93 L 01/28/17 17:23 80 96 H 95 01/28/17 13:29 84 16 96 - General General Appearance: Alert, Oriented x3, Cooperative Limitations: No limitations - Head Head exam: Atraumatic, Normocephalic, Normal inspection Head exam detail: negative: Abrasion, Contusion, Infante's sign, General tenderness, Hematoma, Laceration - Eye Eye exam: Normal appearance. negative: Conjunctival injection, Periorbital swelling, Periorbital tenderness, Scleral icterus - ENT ENT exam: Normal exam Ear exam: negative: Auricular hematoma, Auricular trauma Nasal Exam: negative: Active bleeding, Discharge, Dried blood, Foreign body Mouth exam: negative: Drooling, Laceration, Muffled voice, Tongue elevation - Neck Neck exam: Normal inspection. negative: Meningismus, Tenderness - Respiratory Respiratory exam: Decreased breath sounds - Cardiovascular Cardiovascular Exam: Regular rate, Normal rhythm, Normal heart sounds - GI/Abdominal GI/Abdominal exam: Soft. negative: Rebound, Rigid, Tenderness - Rectal Rectal exam: Deferred - exam: Deferred - Extremities Extremities exam: Normal inspection. negative: Calf tenderness, Pedal edema, Tenderness - Back Back exam: Denies: CVA tenderness (R), CVA tenderness (L) - Neurological Neurological exam: Alert, Normal gait, Oriented X3 - Psychiatric Psychiatric exam: Normal affect, Normal mood - Skin Skin exam: Normal color. negative: Abrasion Type of lesion: negative: abrasion Hospitalization - Hospitalization Admission Diagnosis: COPD exacerbation - Problem List/Discharge Diagnosis (1) COPD with acute exacerbation Current Visit: Yes Status: Acute Base Code: J44.1 - CHRONIC OBSTRUCTIVE PULMONARY DISEASE W (ACUTE) EXACERBATION Comment: 01/29/17- Admitted with CC DOROTHY, SPO2 88% RA, failed outpatient treatment of oral steroids. CXR on admit- mild to moderate pulmonary fibrosis, no active process. COPD pathway initiated on admit with DuoNeb Q4hr WA with albuterol q 2hr PRN, solumedrol 0.5mg/kg Q 6 hrs x 2 days, O2 @ 2l, Levaquin 750mg IVPB q 24 hrs, Respiratory viral panel + influenza B. Levaquin and steroids changed to PO 01/28 and tolerating well, siginficant clinical improvement from admission status. Medical records from [facility] not available. - Follow up with PCP in 2 weeks and pulmonology consult as previously scheduled - Continue PO Levaquin and steroids at home as prescribed (2) Influenza B Current Visit: Yes Status: Acute Base Code: J10.1 - FLU DUE TO OTH IDENT INFLUENZA VIRUS W OTH RESP MANIFEST Comment: 01/29/17- respiratory viral panel + influenza B. Has remained afebrile, WBC normalized. Dyspnea resolved. Is unsure if he has received a pneumonia vaccine after age 65, did not get influenza vaccination this year. Desires to discuss this with PCP Dr Caballero prior to vaccination. Appt with PCP 02/08/17 - Continue Tamiflu 75mg BID for 5 day total treatment - Follow up PCP in 2 weeks (3) EtOH dependence Current Visit: Yes Status: Acute Base Code: F10.20 - ALCOHOL DEPENDENCE, UNCOMPLICATED Comment: 01/29/17- 2-3 12oz beers daily, last alcoholic beverage 2-3 days ago. CIWA initated q 2 hours 01/26 with consistent scoring of 0, VSS, no agitation, diaphoresis, confusion. Has remained asymptomatic for ETOH withdrawl during this hospitalization. (4) HTN (hypertension) Current Visit: Yes Status: Acute Base Code: I10 - ESSENTIAL (PRIMARY) HYPERTENSION Comment: 01/29/17- Continue Amlodipine 10mg per home dosing. BP ranges 142/84 - 169/109. Patient reported cardiac stress test last year at [facility] (no report available). 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 HCTZ 25mg initiated 01/28 with BP this am 147/84. Has remained asymptomatic. Cardiology consult 01/[address] Hamilton ( I), confirmed negative cardiac stress test 3 years ago. Stable for discharge. No need to follow up with [facility] unless any new cardiac developments. - Follow up PCP in 2 weeks - Continue HCTZ 25mg QD (5) DVT prophylaxis Current Visit: Yes Status: Acute Base Code: [id number] - Comment: 01/29/17- Moderate risk. Lovenox 40mg QD during this hospitalization (6) Full code status Current Visit: Yes Status: Acute Base Code: Z78.9 - OTHER SPECIFIED HEALTH STATUS Comment: 01/29/17- will remain full code status during this hospitalization - Hospitalization Course Hospital Course: 71 y/o M admitted for COPD exacerbation. PMH: HTN, questionable COPD, former smoker, ETOH use, gout. History obtained from patient. Presented to ED for 5 day history of cough, chest congestion, body aches and progressive DOROTHY. Was seen by PCP and given oral steroids with no improvement. Upon arrival to ED T 99.1, P 95, RR 32, BP 181/112, SPO2 88% RA. WBC 8.o, hgb 15.6, hct 45.4, plt 274, CO2 33.9, Cl 95. Influenza PCR sent to lab. CXR c/w pulmonary fibrosis, no acute findings. EKG NSR, t wave inversion AVL, V5-V6 unchanged from 01/20/17. Pt presented with 88-89% RA. Pt placed on 2L O2. Sats increased to 97%.ED ambulatory trial on RA with biox 91-93% but RR increased with 32 breaths/min. Patient's oxygen improved after given DuoNeb and oxygen in the ED. 01/27/17- Patient transferred to the floor 01/26. Laying in bed comfortably. Reports breathing has improved since yesterday. Has been recently referred to a vp product management in [place] for work up of possible COPD but has not seen for initial appointment yet. 2 weeks ago had PFT done at [facility] in preparation for pulmonology appointment. Was previously hospitalized for respiratory difficulty about a month ago. These records are not available at this time. Is a previous smoker. 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 ETOH history of 2-3 12oz cans of beer per day, last drink 2-3 days ago. Has been on steroids in the last 30 days so Solumedrol 0.5mg/kg q 6 hrs initiated, Levaquin 750mg IVPB started, DuoNeb q 4 hrs WA and albuterol neb q 2 hrs PRN continued from ED. Admitted for further medical management Abnormal Labs: Abnormal Lab Results 01/26/17 Range/Units 13:35 Influenza Virus (PCR) Detected H (Not Detected) Condition at Discharge: (2) Stable Discharge Medications - Discharge Medications Prescriptions: Oseltamivir Phosphate [Tamiflu] 75 mg PO Q12HR #5 capsule Hydrochlorothiazide [Hctz] 25 mg PO DAILY #30 tablet Levofloxacin [Levaquin] 500 mg PO DAILYFLUOR #5 tablet Prednisone [Prednisone 20Mg] 60 mg PO DAILYWM #5 tab Home Medications: Ambulatory Orders Amlodipine Besylate 10 mg PO DAILY 01/21/15 [Last Taken 01/25/17] Hydrocodone/Acetaminophen [[place] 5mg/325mg] 1 tab PO Q6H PRN #15 tab 07/07/16 [ Last Taken 01/25/17] Hydrochlorothiazide [Hctz] 25 mg PO DAILY #30 tablet 01/29/17 [Last Taken Unknown] Levofloxacin [Levaquin] 500 mg PO DAILYFLUOR #5 tablet 01/29/17 [Last Taken Unknown] Oseltamivir Phosphate [Tamiflu] 75 mg PO Q12HR #5 capsule 01/29/17 [Last Taken Unknown] Prednisone [Prednisone 20Mg] 60 mg PO DAILYWM #5 tab 01/29/17 [Last Taken Unknown] Discharge Plan - Discharge Instructions Activity at Discharge: Increase Activity as Tolerated Diet at Discharge: Advance to Usual Diet Instructions: Influenza (DC), COPD, Insurance Account Executive (GEN) Additional Instructions: 2 Activity: Increase Activity as Tolerated 2 Diet: Advance to Usual Diet 2 Consults: 2 Follow Up: With Dr Caballero on February 08 at 10:30am 2 2 Additional: Please follow up before your doctor's appointment if: Your temp is >100.4 Your symptoms worsen
== END 2017-01-29 12:00 | disposition home or self-care (01) | DRG 192 ==
LOC: ER 09:55 → OBSVTOIN 12:50 → MEDSURG 12:50
PROVIDERS: ADMIT Family Medicine; ATTEND Family Medicine
DX: J44.1 Chronic obstructive pulmonary disease with (acute) exacerbation (principal); J10.1 Influenza due to other identified influenza virus with other respiratory manifestations; F10.20 Alcohol dependence, uncomplicated; I10 Essential (primary) hypertension; Z78.9 Other specified health status
CPT/HCPCS: 71010; 80053; 85027; 86756; 87400; 93005; 93010; 94640; 94760; 94761; 96374; 99223; 99239; 99285; J1650; J1956; J2930; J7030; J7512

== ENCOUNTER 2018-11-05 19:24 | Emergency (ER) | payer BC ==
[2018-11-05] MEDS ORDERED: METHYLPREDNISOLONE PF 125MG/VIAL IVPB ONE (19:29)
[2018-11-05] MEDS ORDERED: IPRATROPIUM/ALBUTEROL (0.5MG/3MG) NEB INH ONE (19:29)
[2018-11-05 19:39] LABS: BASO % 0.3 % (0-6); EOS % 2.6 % (0-6); GRAN % 53.3 % (47-80); HEMATOCRIT 46.3 % (42.0-52.0); HEMOGLOBIN 15.4 gm/dl (14.0-18.0); LYMPH % 36.4 % (16-45); MEAN CELL VOLUME 78.6 fl (81-97); MEAN CORPUSCULAR HEMOGLOBIN 26.1 pg (27-33); MEAN CORPUSCULAR HGB CONC 33.3 g/dl (32-36); MEAN PLATELET VOLUME 9.1 fl (7.4-10.4); MONO % 7.4 % (0-9); PLATELET COUNT 322 K/uL (130-400); RED BLOOD COUNT 5.89 M/uL (4.40-5.70); RED CELL DISTRIBUTION WIDTH 16.4 % (11.5-14.5); WHITE BLOOD COUNT W/O DIFF 9.8 K/uL (4.2-12.2)
--- NOTE | 2018-11-05 19:43 | Emergency Department Record ---
History of Present Illness - General Chief Complaint: Shortness of breath Time Seen by Provider: 11/05/18 19:25 Source: Patient Mode of Arrival: Ambulatory Limitations: No limitations - History of Present Illness Initial Comments: 72 yo male presents to ED for evaluation of difficulty in breathing symptoms, reports history of COPD. Patient reports that he has been "short of breath for months", reports that his symptoms worsened tonight. Patient denies fevers, chills, or lower extremity edema. Patient denies history of CHF. MD Complaint: Shortness of breath Onset/Timin -: Hour(s) Severity: Moderate Consistency: Constant Improves With: Nothing Worsens With: Exertion Known History Of: COPD Treatments Prior to Arrival: None - Related Data Previous Rx's Medication Instructions Recorded Hydrocodone/Acetaminophen [[place] 1 tab PO Q6H PRN #15 tab 07/07/16 5mg/325mg] Hydrochlorothiazide [Hctz] 25 mg PO DAILY #30 tablet 01/29/17 Levofloxacin [Levaquin] 500 mg PO DAILYFLUOR #5 tablet 01/29/17 Oseltamivir Phosphate [Tamiflu] 75 mg PO Q12HR #5 capsule 01/29/17 Prednisone [Prednisone 20Mg] 60 mg PO DAILYWM #5 tab 01/29/17 Albuterol Sulfate [Proair Hfa] 1 - 2 puff IH .EVERY 4-6 HOURS PRN 11/05/18 #1 inhaler Prednisone [Prednisone 20Mg] 20 mg PO BID #10 tab 11/05/18 Allergies Allergy/AdvReac Type Severity Reaction Status Date / Time Penicillins Allergy PT UNSURE Verified 11/05/18 19:26 OF REACTION Travel Screening - Travel/Exposure Within Last 30 Days Have you traveled within the last 30 days?: No - Travel/Exposure Within Last Year Have you traveled outside the [place] in the last year?: No - Additonal Travel Details Have you been exposed to anyone with a communicable illness?: No - Travel Symptoms Symptom Screening: None Review of Systems Constitutional: Denies: Chills, Fever, Malaise, Night sweats Eyes: Denies: Eye discharge, Eye pain ENT: Denies: Congestion, Ear pain, Epistaxis Respiratory: Reports: Cough. Denies: Dyspnea Cardiovascular: Denies: Arrhythmia, Chest pain Endocrine: Denies: Fatigue, Heat or cold intolerance Gastrointestinal: Denies: Abdominal pain, Nausea, Vomiting Genitourinary: Denies: Incontinence, Retention Musculoskeletal: Denies: Arthralgia, Back pain Skin: Denies: Bruising, Change in color Neurological: Denies: Abnormal gait, Confusion, Headache, Seizure Psychiatric: Denies: Anxiety Hematological/Lymphatic: Denies: Anemia, Blood Clots Past Medical History - SOCIAL HISTORY Smoking Status: Former smoker Alcohol Use: Heavy Alcohol Use Comment: daily 2 beers- today Drug Use: None - RESPIRATORY Hx Respiratory Disorders: Yes Hx COPD: Yes - CARDIOVASCULAR Hx Cardio Disorders: Yes Hx Hypertension: Yes - NEURO Hx Neuro Disorders: No Comment:: patient states he has intermittent tremors - GI Hx GI Disorders: No - Hx Genitourinary Disorders: No - ENDOCRINE Hx Endocrine Disorders: No Hx Diabetes: No Hx Thyroid Disease: No - MUSCULOSKELETAL Hx Musculoskeletal Disorders: Yes Hx Gout: Yes Comment:: non compliant with medication/per patient - PSYCH Hx Psych Problems: No - HEMATOLOGY/ONCOLOGY Hx Hematology/Oncology Disorders: No Family Medical History Any Significant Family History?: No Hx Cancer: Father Hx Stroke: Mother Physical Exam - General General Appearance: Alert, Oriented x3, Cooperative, Moderate distress Limitations: No limitations - Head Head exam: Atraumatic, Normocephalic, Normal inspection Head exam detail: negative: Abrasion, Contusion, Infante's sign, General tenderness, Hematoma, Laceration - Eye Eye exam: Normal appearance. negative: Conjunctival injection, Periorbital swelling, Periorbital tenderness, Scleral icterus - ENT Ear exam: negative: Auricular hematoma, Auricular trauma Nasal Exam: negative: Active bleeding, Discharge, Dried blood, Foreign body Mouth exam: negative: Drooling, Laceration, Muffled voice, Tongue elevation - Neck Neck exam: Normal inspection. negative: Meningismus, Tenderness - Respiratory Respiratory exam: Decreased breath sounds. negative: Respiratory distress, Rhonchi, Stridor - Cardiovascular Cardiovascular Exam: Regular rate, Normal rhythm, Normal heart sounds - GI/Abdominal GI/Abdominal exam: Soft. negative: Rebound, Rigid, Tenderness - Rectal Rectal exam: Deferred - exam: Deferred - Extremities Extremities exam: Normal inspection. negative: Pedal edema, Tenderness - Back Back exam: Denies: CVA tenderness (R), CVA tenderness (L) - Neurological Neurological exam: Alert, Normal gait, Oriented X3 - Psychiatric Psychiatric exam: Normal affect, Normal mood - Skin Skin exam: Normal color. negative: Abrasion Type of lesion: negative: abrasion Course Vital Signs 11/05/18 19:28 Pulse Rate 81 Respiratory 24 Rate Blood Pressure 174/96 Pulse Ox 88 L - Reevaluation(s) Reevaluation #1: 11/05/18 19:41 EKG: NSR 81 Normal axis, normal intervals T wave inversion I, AVL Reevaluation #2: 11/05/18 20:00 Laboratory studies were reviewed, Potassium 4.7, CO2 31. Labs are otherwise grossly unremarkable for an acute process. Reevaluation #3: 11/05/18 20:05 CXR: Progressive fibrosis Nothing acute Patient was reassessed, reports that he is feeling better and that he wants to go home at this time. Will perform ambulating Biox and reassess. Reevaluation #4: 11/05/18 20:19 Patient ambulated with steady gait, RA biox 97%. Patient reports that he is feeling much better, states that he wants to go home at this time. Patient appears stable for discharge at this time on Prednisone and Albuterol as directed. Medical Decision Making - Lab Data Result diagrams: 11/05/18 19:30 11/05/18 19:30 Disposition Disposition: Discharge Clinical Impression: Fibrotic lung diseases Disposition: Home, Self-Care Condition: (2) Stable Instructions: Pulmonary Fibrosis (ED) Additional Instructions: Return to ED if your symptoms worsen or if you have any concerns. Prednisone and Albuterol as directed. Follow-up with your family doctor in 3-5 days as directed. Prescriptions: Albuterol Sulfate [Proair Hfa] 1 - 2 puff IH .EVERY 4-6 HOURS PRN #1 inhaler PRN Reason: Difficulty In Breathing Prednisone [Prednisone 20Mg] 20 mg PO BID #10 tab Forms: Patient Portal Access Time of Disposition: 20:18 Quality - Quality Measures Quality Measures: N/A - Blood Pressure Screening Does Patient Have Any of the Following: Active Dx of HTN Blood Pressure Classification: Hypertensive Reading Systolic Measurement: 174 Diastolic Measurement: 96 Screening for High Blood Pressure: Patient Exclusion, Hx of HTN [G9744]
[2018-11-05 19:50] LABS: BLOOD UREA NITROGEN 12 mg/dL (8-23); EST GLOMERULAR FILTRATION RATE > 60 mL/min; TOTAL PROTEIN 8.6 g/dL (6.6-8.7)
[2018-11-05 19:52] LABS: GLUCOSE,RANDOM 98 mg/dL (74-109)
[2018-11-05 19:55] LABS: ALBUMIN 4.4 g/dL (4.0-5.0); ALKALINE PHOSPHATASE 107 U/L (55-149); ALT/SGPT 8 U/L (<41); AST/SGOT 15 U/L (10.0-50.0)
--- NOTE | 2018-11-06 20:46 | RADIOLOGY REPORT ---
EXAM: CHEST 2 VIEWS HISTORY: CHRONIC DIFFICULTY BREATHING FOR THE PAST SIX MONTHS. INCREASED SYMPTOMS TODAY. TECHNIQUE: PA and lateral upright views of the chest were obtained. COMPARISON: 01/26/2017 and 01/20/2017. FINDINGS: The heart is normal in size. There is calcification and tortuosity of the aorta. The mediastinum and pulmonary vasculature are normal. Extensive fibrotic changes are present within both lungs. These have increased when compared to the 2017 exams. No definite acute infiltrates or effusions are identified. There is no pneumothorax. There are chronic compression deformities within the spine. No acute osseous abnormalities are identified. IMPRESSION: 1. PROGRESSIVE FIBROTIC CHANGES WITHIN BOTH LUNGS. 2. NO ACUTE CHEST PATHOLOGY. JOB NUMBER: [id number] [facility]
== END 2018-11-05 20:36 | disposition home or self-care (01) ==
LOC: ER 19:24
DX: J84.10 Pulmonary fibrosis, unspecified (principal); R06.02 Shortness of breath; I10 Essential (primary) hypertension; Z87.891 Personal history of nicotine dependence
CPT/HCPCS: 99284 ×2; 96374; 85025; 80053; 83880; 71046; 94640; 93005; 93010; G0480; 80320; J2930

== ENCOUNTER 2018-11-09 13:25 | Emergency (ER) | payer BC, MEDICARE ==
--- NOTE | 2018-11-09 14:00 | Emergency Department Record ---
History of Present Illness - General Chief Complaint: Difficulty Breathing Stated Complaint: DOROTHY Time Seen by Provider: 11/09/18 13:35 Source: Patient Mode of Arrival: Ambulatory Limitations: No limitations - History of Present Illness Initial Comments: The patient is here due to a worsening 4-5 month hx of cough and congestion. He has had some sputum production and SOB but denies any fever, chills, back pain, CP, or GARIBAY's. The patient does have a hx of COPD and has been admitted to the hospital in the past. He was just in the ER here 4 days ago for the same issues and was discharged with inhallers and oral steroids. The patient states the medicines are not working and that is why he is here. MD Complaint: Cough, Shortness of breath Onset/Timin -: Month(s) Consistency: Intermittent Improves With: Nothing Worsens With: Nothing Known History Of: COPD Associated Symptoms: Cough Treatments Prior to Arrival: None - Related Data Previous Rx's Medication Instructions Recorded Hydrocodone/Acetaminophen [[place] 1 tab PO Q6H PRN #15 tab 07/07/16 5mg/325mg] Hydrochlorothiazide [Hctz] 25 mg PO DAILY #30 tablet 01/29/17 Prednisone [Prednisone 20Mg] 60 mg PO DAILYWM #5 tab 01/29/17 Albuterol Sulfate [Proair Hfa] 1 - 2 puff IH .EVERY 4-6 HOURS PRN 11/05/18 #1 inhaler Prednisone [Prednisone 20Mg] 20 mg PO BID #10 tab 11/05/18 Doxycycline Monohydrate [Mondoxyne 100 mg PO BID 7 Days #14 capsule 11/09/18 Nl] Allergies Allergy/AdvReac Type Severity Reaction Status Date / Time Penicillins Allergy PT UNSURE Verified 11/09/18 13:29 OF REACTION Travel Screening - Travel/Exposure Within Last 30 Days Have you traveled within the last 30 days?: No - Travel/Exposure Within Last Year Have you traveled outside the [place] in the last year?: No - Additonal Travel Details Have you been exposed to anyone with a communicable illness?: No - Travel Symptoms Symptom Screening: None Review of Systems Constitutional: Denies: Chills, Fever, Malaise Eyes: Denies: Eye discharge ENT: Reports: Congestion Respiratory: Reports: Cough, Dyspnea. Denies: Hemoptysis, Wheezes Cardiovascular: Denies: Arrhythmia, Chest pain Endocrine: Reports: Fatigue Gastrointestinal: Denies: Nausea Genitourinary: Denies: Dysuria Musculoskeletal: Denies: Arthralgia Skin: Denies: Bruising Past Medical History - SOCIAL HISTORY Smoking Status: Former smoker Alcohol Use: Occasional Alcohol Use Comment: States 1 beer daily Drug Use: None - RESPIRATORY Hx Respiratory Disorders: Yes Hx COPD: Yes - CARDIOVASCULAR Hx Cardio Disorders: Yes Hx Hypertension: Yes - NEURO Hx Neuro Disorders: No Comment:: patient states he has intermittent tremors - GI Hx GI Disorders: No - Hx Genitourinary Disorders: No - ENDOCRINE Hx Endocrine Disorders: No Hx Diabetes: No Hx Thyroid Disease: No - MUSCULOSKELETAL Hx Musculoskeletal Disorders: Yes Hx Gout: Yes Comment:: non compliant with medication/per patient - PSYCH Hx Psych Problems: No - HEMATOLOGY/ONCOLOGY Hx Hematology/Oncology Disorders: No Family Medical History Any Significant Family History?: Yes Hx Cancer: Father Hx Stroke: Mother Physical Exam - General General Appearance: Alert, Cooperative, No acute distress - Head Head exam: Atraumatic, Normocephalic - Eye Eye exam: Normal appearance - ENT Throat exam: Normal inspection. negative: Tonsillar erythema, Tonsillar exudate - Neck Neck exam: Normal inspection, Full ROM. negative: Tenderness - Respiratory Respiratory exam: Rales (The patient has expiratory fine crackles at the bases.) . negative: Normal lung sounds bilaterally, Accessory muscle use, Decreased breath sounds, Respiratory distress - Cardiovascular Cardiovascular Exam: Regular rate, Normal rhythm, Normal heart sounds. negative : Diastolic murmur, Systolic murmur - GI/Abdominal GI/Abdominal exam: Soft, Normal bowel sounds. negative: Tenderness - Extremities Extremities exam: Normal inspection, Full ROM, Normal capillary refill. negative: Tenderness - Neurological Neurological exam: Alert, Normal gait. negative: Abnormal gait, Motor sensory deficit Course Vital Signs 11/09/18 13:32 Temperature 97.5 F L Pulse Rate 76 Respiratory 20 Rate Blood Pressure 152/102 Pulse Ox 92 L - Reevaluation(s) Reevaluation #1: The patient is doing better after his breathing treatments. He denies any CP or back pain but is still coughing at times. The patient does feel better and does have an ambulatory biox of 94%. He does have a lung specialist in [place] but has not seen him for some time. The patient's evaluation is all WNL's and I do believe his elevated WBC is due to being on Prednisone presently. He does feel comfortable going home and is encouraged to see his PCP when possible and also his Lung Specialist. 11/09/18 15:00 Medical Decision Making - Data Complexity MDM Data: Labs Ordered and/or Reviewed, X-Ray Ordered and/or Reviewed - Lab Data Result diagrams: 11/09/18 13:40 11/09/18 13:40 - EKG Data -: EKG Interpreted by Me EKG: No Acute Changes, Unchanged From Previous - Radiology Data Radiology results: Report reviewed (CXR: Chronic fibrotic changes. Neg for acute changes.) Disposition Disposition: Discharge Clinical Impression: Fibrotic lung diseases, Cough Disposition: Home, Self-Care Condition: (2) Stable Instructions: Dyspnea (ED) Additional Instructions: Please continue your inhallers and Prednisone. Please also continue the Doxycycline. Please see your family doctor for recheck later this week and also schedule an appointment with your lung specialist. Please return to the ER for any worsening symptoms. Prescriptions: Doxycycline Monohydrate [Mondoxyne Nl] 100 mg PO BID 7 Days #14 capsule Forms: Patient Portal Access Time of Disposition: 15:04 Quality - Quality Measures Quality Measures: N/A - Blood Pressure Screening View Details: Yes Does Patient Have Any of the Following: No Blood Pressure Classification: Hypertensive Reading Systolic Measurement: 152 Diastolic Measurement: 102 Screening for High Blood Pressure: < First Hypertensive BP, F/U Documented > [ G8950] First Hypertensive Follow-up Interventions: Referral to alternative/primary care provider.
[2018-11-09 14:01] LABS: BASO % 0.3 % (0-6); EOS % 2.7 % (0-6); GRAN % 63.5 % (47-80); HEMATOCRIT 46.6 % (42.0-52.0); HEMOGLOBIN 15.4 gm/dl (14.0-18.0); LYMPH % 23.5 % (16-45); MEAN CORPUSCULAR HEMOGLOBIN 26.1 pg (27-33); MEAN PLATELET VOLUME 9.4 fl (7.4-10.4); PLATELET COUNT 329 K/uL (130-400); RED CELL DISTRIBUTION WIDTH 16.9 % (11.5-14.5); WHITE BLOOD COUNT W/O DIFF 15.4 K/uL (4.2-12.2)
[2018-11-09] MEDS: IPRATROPIUM/ALBUTEROL (0.5MG/3MG) NEB INH ONE (14:02)
[2018-11-09 14:11] LABS: BLOOD UREA NITROGEN 16 mg/dL (8-23); EST GLOMERULAR FILTRATION RATE > 60 mL/min
[2018-11-09 14:14] LABS: GLUCOSE,RANDOM 133 mg/dL (74-109)
[2018-11-09] MEDS: ALBUTEROL SULFATE (0.083%) 2.5 MG/3 ML NEB INH SCH (14:53)
[2018-11-09] MEDS: DOXYCYCLINE HYCLATE 100 MG CAPSULE PO ONE (14:53)
--- NOTE | 2018-11-10 09:17 | RADIOLOGY REPORT ---
EXAM: CHEST, TWO VIEWS HISTORY: DIFFICULTY IN BREATHING. TECHNIQUE: Frontal and lateral views of the chest were performed. Comparison: 11/05/18. FINDINGS: The heart size is normal. There is chronic underlying interstitial lung disease. No definitive superimposed infiltrate or pleural effusion. IMPRESSION: CHRONIC UNDERLYING INTERSTITIAL LUNG DISEASE. NO DEFINITIVE SUPERIMPOSED INFILTRATE OR PLEURAL EFFUSION. JOB NUMBER: [id number] [facility]
== END 2018-11-09 15:26 | disposition home or self-care (01) ==
LOC: ER 13:25
DX: J84.10 Pulmonary fibrosis, unspecified (principal); R05 Cough; R06.00 Dyspnea, unspecified; D72.829 Elevated white blood cell count, unspecified; I10 Essential (primary) hypertension; Z87.891 Personal history of nicotine dependence
CPT/HCPCS: 71046; 80048; 83880; 84484; 85025; 93005; 93010; 94618; 94640; 99284; J7613

== ENCOUNTER 2018-11-29 18:03 | Emergency (ER) | payer MEDICARE ==
[2018-11-29] MEDS ORDERED: HYDROMORPHONE HCL 2 MG/ML VIAL IVP ONE ×2 (18:09→20:08)
--- NOTE | 2018-11-29 18:15 | Emergency Department Record ---
History of Present Illness - General Stated Complaint: FALL/LT HIP AND LEG PAIN Time Seen by Provider: 11/29/18 18:08 Source: Patient, EMS Mode of Arrival: EMS Limitations: No limitations - History of Present Illness Initial Comments: 73 yo male presents to ED via EMS for evaluation of left hip and pelvis pain following a fall. Patient reports that he was outdoors when he fell, denies injury other than his left hip. Patient denies injury to the head or neck, denies use of anticoagulation medications. Patient denies previous evaluation by any orthopedist, and denies health problems other than COPD. MD Complaint: Fall Onset/Timin -: Minutes(s) Fall From: Standing When Fall Occurred: Just prior to arrival Place Fall Occurred: Street Loss of Consciousness: None Prolonged Down Time?: No Symptoms Prior to Fall: None Location: Pelvis Severity: Severe Quality: Aching - [place] Coma Scale Eye Response: (4) Open spontaneously Motor Response: (6) Obeys commands Verbal Response: (5) Oriented [place] Total: 15 - Related Data Previous Rx's Medication Instructions Recorded Hydrocodone/Acetaminophen [[place] 1 tab PO Q6H PRN #15 tab 07/07/16 5mg/325mg] Hydrochlorothiazide [Hctz] 25 mg PO DAILY #30 tablet 01/29/17 Prednisone [Prednisone 20Mg] 60 mg PO DAILYWM #5 tab 01/29/17 Albuterol Sulfate [Proair Hfa] 1 - 2 puff IH .EVERY 4-6 HOURS PRN 11/05/18 #1 inhaler Prednisone [Prednisone 20Mg] 20 mg PO BID #10 tab 11/05/18 Doxycycline Monohydrate [Mondoxyne 100 mg PO BID 7 Days #14 capsule 11/09/18 Nl] Allergies Allergy/AdvReac Type Severity Reaction Status Date / Time Penicillins Allergy PT UNSURE Verified 11/09/18 13:29 OF REACTION Review of Systems Constitutional: Denies: Chills, Fever, Malaise, Night sweats, Weakness Eyes: Denies: Eye discharge, Eye pain ENT: Denies: Congestion, Ear pain, Epistaxis Respiratory: Denies: Cough, Dyspnea Cardiovascular: Denies: Chest pain, Dyspnea on exertion Endocrine: Denies: Fatigue, Heat or cold intolerance Gastrointestinal: Denies: Abdominal pain, Nausea, Vomiting Genitourinary: Denies: Incontinence, Retention Musculoskeletal: Reports: Arthralgia. Denies: Back pain, Gout, Joint swelling Skin: Denies: Bruising, Change in color Neurological: Denies: Abnormal gait, Confusion, Headache, Numbness, Tingling, Tremors Psychiatric: Denies: Anxiety Hematological/Lymphatic: Denies: Anemia, Blood Clots Past Medical History - SOCIAL HISTORY Smoking Status: Former smoker Alcohol Use Comment: States 1 beer daily Drug Use: None - RESPIRATORY Hx Respiratory Disorders: Yes Hx COPD: Yes - CARDIOVASCULAR Hx Cardio Disorders: Yes Hx Hypertension: Yes - NEURO Hx Neuro Disorders: No Comment:: patient states he has intermittent tremors - GI Hx GI Disorders: No - Hx Genitourinary Disorders: No - ENDOCRINE Hx Endocrine Disorders: No Hx Diabetes: No Hx Thyroid Disease: No - MUSCULOSKELETAL Hx Musculoskeletal Disorders: Yes Hx Gout: Yes Comment:: non compliant with medication/per patient - PSYCH Hx Psych Problems: No - HEMATOLOGY/ONCOLOGY Hx Hematology/Oncology Disorders: No Family Medical History Hx Cancer: Father Hx Stroke: Mother Physical Exam - General General Appearance: Alert, Oriented x3, Cooperative, Moderate distress Limitations: No limitations - Head Head exam: Atraumatic, Normocephalic, Normal inspection Head exam detail: negative: Abrasion, Contusion, Infante's sign, General tenderness, Hematoma, Laceration - Eye Eye exam: Normal appearance. negative: Conjunctival injection, Periorbital swelling, Periorbital tenderness, Scleral icterus - ENT Ear exam: negative: Auricular hematoma, Auricular trauma Nasal Exam: negative: Active bleeding, Discharge, Dried blood, Foreign body Mouth exam: negative: Drooling, Laceration, Muffled voice, Tongue elevation - Neck Neck exam: Normal inspection. negative: Meningismus, Tenderness - Respiratory Respiratory exam: Normal lung sounds bilaterally. negative: Respiratory distress, Rhonchi, Stridor, Wheezes - Cardiovascular Cardiovascular Exam: Regular rate, Normal rhythm, Normal heart sounds - GI/Abdominal GI/Abdominal exam: Soft. negative: Rebound, Rigid, Tenderness - Rectal Rectal exam: Deferred - exam: Deferred - Extremities Extremities exam: Other (TTP to the lateral left pelvis/femur, lower extremity is held in a flexed position, shortening noted, strong DPP present. No pain with palpation is noted over the left knee/ankle.) - Back Back exam: Denies: CVA tenderness (R), CVA tenderness (L) - Neurological Neurological exam: Alert, Oriented X3. negative: Motor sensory deficit - Psychiatric Psychiatric exam: Normal affect, Normal mood - Skin Skin exam: Normal color. negative: Abrasion Type of lesion: negative: abrasion Course - Reevaluation(s) Reevaluation #1: 11/29/18 18:44 Laboratory studies were reviewed and are grossly unremarkable for an acute process. CT Pelvis: Left comminuted femoral neck fracture [facility] 1-call contacted for transfer. Reevaluation #2: 11/29/18 18:49 EKG: NSR with PVCs Normal axis, normal intervals Diffuse artifact present Reevaluation #3: 11/29/18 19:22 Case was discussed with Dr. Tiwari, will accept admission and transfer at this time. Medical Decision Making - Lab Data Result diagrams: 11/29/18 18:27 11/29/18 18:27 Disposition Disposition: Transfer Clinical Impression: Femur fracture, left Qualifiers: Encounter type: initial encounter Femur location: neck Fracture type: closed Qualified Code(s): S72.002A - Fracture of unspecified part of neck of left femur , initial encounter for closed fracture Disposition: Acute Care Hospital Transfer Transfer To: [facility] Reason For Transfer: Proximal femur fracture Accepting Physician: Karie Time Discussed w/Accepting Physician: 19:23 Condition: (2) Stable Time of Disposition: 19:23 Quality - Quality Measures Quality Measures: N/A - Blood Pressure Screening Does Patient Have Any of the Following: Active Dx of HTN Blood Pressure Classification: Hypertensive Reading Systolic Measurement: 157 Diastolic Measurement: 94 Screening for High Blood Pressure: Patient Exclusion, Hx of HTN [G9744]
[2018-11-29 18:30] LABS: BASO % 0.8 % (0-6); EOS % 1.7 % (0-6); GRAN % 57.7 % (47-80); HEMATOCRIT 43.4 % (42.0-52.0); HEMOGLOBIN 14.7 gm/dl (14.0-18.0); LYMPH % 32.4 % (16-45); MEAN CELL VOLUME 78.9 fl (81-97); MEAN CORPUSCULAR HEMOGLOBIN 26.7 pg (27-33); MEAN CORPUSCULAR HGB CONC 33.9 g/dl (32-36); MEAN PLATELET VOLUME 8.9 fl (7.4-10.4); MONO % 7.4 % (0-9); PLATELET COUNT 347 K/uL (130-400); RED CELL DISTRIBUTION WIDTH 16.7 % (11.5-14.5); WHITE BLOOD COUNT W/O DIFF 10.6 K/uL (4.2-12.2)
[2018-11-29 18:39] LABS: INR 1.1; PROTHROMBIN TIME (PATIENT) 10.6 SECONDS (9.5-12.1)
[2018-11-29 18:40] LABS: BLOOD UREA NITROGEN 8 mg/dL (8-23); EST GLOMERULAR FILTRATION RATE > 60 mL/min
[2018-11-29 18:41] LABS: TOTAL PROTEIN 7.9 g/dL (6.6-8.7)
[2018-11-29 18:43] LABS: GLUCOSE,RANDOM 128 mg/dL (74-109)
[2018-11-29 18:45] LABS: ALB/GLOB RATIO 0.9 (1.1-1.8); ALBUMIN 3.7 g/dL (4.0-5.0); ALT/SGPT 11 U/L (<41); AST/SGOT 26 U/L (10.0-50.0)
[2018-11-29 18:46] LABS: ALKALINE PHOSPHATASE 89 U/L (55-149)
--- NOTE | 2018-12-01 13:35 | CT SCAN REPORT ---
EXAM: CT OF THE PELVIS WITHOUT CONTRAST HISTORY: FALL. LEFT HIP PAIN. TECHNIQUE: Routine noncontrast CT examination of the pelvis was performed with extension down to the proximal femoral diaphyses. The most superior aspect of the iliac bones are not entirely included on the examination. FINDINGS: There is borderline to mild osteopenia. There is an acute fracture of the proximal neck of the left femur with mild anterior displacement of the distal fracture fragment. In addition there is apex anterior angulation of the fracture fragments. No other acute osseous fracture is seen nor is there dislocation. No gross hematoma formation is noted at the femoral neck fracture site. There are degenerative changes of the sacroiliac joints with ankylosis of the right sacroiliac joint. There are degenerative changes at the lumbosacral junction. No intrapelvic mass nor adenopathy. There is moderate enlargement of the prostate. There is apparent borderline to mild wall thickening of the urinary bladder likely due to incomplete distention or the result of muscular hypertrophy from bladder outlet obstruction. IMPRESSION: 1. ACUTE FRACTURE OF THE PROXIMAL NECK OF THE LEFT FEMUR, DISCUSSED ABOVE. NO OTHER FRACTURE NOR DISLOCATION. 2. MODERATE ENLARGEMENT OF THE PROSTATE. APPARENT BORDERLINE TO MILD WALL THICKENING OF THE URINARY BLADDER, DISCUSSED ABOVE. JOB NUMBER: [id number] [facility]
== END 2018-11-29 20:30 | disposition short-term general hospital (02) ==
LOC: ER 18:03
DX: S72.092A Other fracture of head and neck of left femur, initial encounter for closed fracture (principal); I10 Essential (primary) hypertension; F44.9 Dissociative and conversion disorder, unspecified; Z87.891 Personal history of nicotine dependence; W00.0XXA Fall on same level due to ice and snow, initial encounter; Y92.410 Unspecified street and highway as the place of occurrence of the external cause
CPT/HCPCS: 72192; 80053; 80320; 85025; 85610; 93005; 93010; 96374; 96376; 99285

== ENCOUNTER 2019-03-26 13:19 | Emergency (ER) | payer MEDICARE ==
[2019-03-26 14:41] LABS: BASO % 0.2 % (0-6); EOS % 3.4 % (0-6); GRAN % 41.6 % (47-80); HEMATOCRIT 43.5 % (42.0-52.0); LYMPH % 47.3 % (16-45); MEAN CELL VOLUME 73.2 fl (81-97); MEAN CORPUSCULAR HEMOGLOBIN 23.5 pg (27-33); MEAN CORPUSCULAR HGB CONC 32.2 g/dl (32-36); MEAN PLATELET VOLUME 9.6 fl (7.4-10.4); MONO % 7.5 % (0-9); PLATELET COUNT 337 K/uL (130-400); RED BLOOD COUNT 5.94 M/uL (4.40-5.70); RED CELL DISTRIBUTION WIDTH 19.3 % (11.5-14.5); WHITE BLOOD COUNT W/O DIFF 9.9 K/uL (4.2-12.2)
[2019-03-26 14:55] LABS: BLOOD UREA NITROGEN 17 mg/dL (8-23); CREATININE 1.2 mg/dL (0.7-1.2); EST GLOMERULAR FILTRATION RATE > 60 mL/min; LIPASE 57 U/L (13-60); TOTAL PROTEIN 8.1 g/dL (6.6-8.7)
[2019-03-26 14:57] LABS: GLUCOSE,RANDOM 118 mg/dL (74-109)
[2019-03-26 15:00] LABS: ALB/GLOB RATIO 1.3 (1.1-1.8); ALBUMIN 4.5 g/dL (4.0-5.0); ALKALINE PHOSPHATASE 103 U/L (40-129); ALT/SGPT 6 U/L (<41); AST/SGOT 13 U/L (10.0-50.0)
[2019-03-26 16:58] LABS: URINE APPEARANCE CLEAR; URINE BILIRUBIN NEGATIVE (NEGATIVE); URINE BLOOD NEGATIVE (NEGATIVE); URINE COLOR YELLOW; URINE GLUCOSE (UA) NEGATIVE (NEGATIVE); URINE KETONE TRACE (NEGATIVE); URINE LEUKOCYTE ESTERASE NEGATIVE (NEGATIVE); URINE NITRITE NEGATIVE (NEGATIVE)
--- NOTE | 2019-03-26 18:12 | Emergency Department Record ---
History of Present Illness - General Chief complaint: Weakness Stated complaint: DOROTHY/SLIRRED SPEECH Time Seen by Provider: 03/26/19 14:20 Source: Patient, Family Mode of Arrival: Ambulatory Limitations: No limitations - History of Present Illness Initial comments: pt came in stating he doesnt feel well. he states he is unable to eat and has a wt loss. he has a hx of fxd hip this year. he states he is weak. pt is currently having pt, ot and st MD Complaint: Generalized weakness Onset/Timin -: Days(s) Location: Generalized Improves with: None Worsens with: None Associated Symptoms: Shortness of breath - [place] Coma Scale Eye Response: (4) Open spontaneously Motor Response: (6) Obeys commands Verbal Response: (5) Oriented [place] Total: 15 - Related Data Allergies Allergy/AdvReac Type Severity Reaction Status Date / Time Penicillins Allergy PT UNSURE Verified 11/09/18 13:29 OF REACTION Travel Screening - Travel/Exposure Within Last 30 Days Have you traveled within the last 30 days?: No - Travel/Exposure Within Last Year Have you traveled outside the [place] in the last year?: No - Additonal Travel Details Have you been exposed to anyone with a communicable illness?: No Review of Systems Reviewed: No additional complaints except as noted below Constitutional: Reports: As per HPI, Weakness. Denies: Chills, Fever, Malaise, Night sweats, Weight change Eyes: Reports: As per HPI. Denies: Eye discharge, Eye pain, Photophobia, Vision change ENT: Reports: As per HPI. Denies: Congestion, Dental pain, Ear pain, Epistaxis, Hearing loss, Throat pain Respiratory: Reports: As per HPI, Dyspnea. Denies: Cough, Hemoptysis, Stridor, Wheezes Cardiovascular: Reports: As per HPI. Denies: Arrhythmia, Chest pain, Dyspnea on exertion, Edema, Murmurs, Orthopnea, Palpitations, Paroxysmal nocturnal dyspnea, Rheumatic Fever, Syncope Endocrine: Reports: As per HPI. Denies: Fatigue, Heat or cold intolerance, Polydipsia, Polyuria Gastrointestinal: Reports: As per HPI. Denies: Abdominal pain, Constipation, Diarrhea, Hematemesis, Hematochezia, Melena, Nausea, Vomiting Genitourinary: Reports: As per HPI. Denies: Dysuria, Frequency, Hematuria, Incontinence, Retention, Testicular pain, Testicular mass, Urgency Musculoskeletal: Reports: As per HPI. Denies: Arthralgia, Back pain, Gout, Sheron nt swelling, Myalgia, Neck pain Skin: Reports: As per HPI. Denies: Bruising, Change in color, Change in hair/nails, Lesions, Pruritus, Rash Neurological: Reports: As per HPI, Abnormal gait, Tremors, Weakness. Denies: Confusion, Headache, Numbness, Paresthesias, Seizure, Tingling, Vertigo Psychiatric: Reports: As per HPI. Denies: Anxiety, Auditory hallucinations, Depression, Homicidal thoughts, Suicidal thoughts, Visual hallucinations Hematological/Lymphatic: Reports: As per HPI. Denies: Anemia, Blood Clots, Easy bleeding, Easy bruising, Swollen glands Past Medical History - SOCIAL HISTORY Smoking Status: Former smoker Alcohol Use: None Drug Use: None - RESPIRATORY Hx Respiratory Disorders: Yes Hx COPD: Yes - CARDIOVASCULAR Hx Cardio Disorders: Yes Hx Hypertension: Yes - NEURO Hx Neuro Disorders: No Comment:: patient states he has intermittent tremors - GI Hx GI Disorders: No - Hx Genitourinary Disorders: No - ENDOCRINE Hx Endocrine Disorders: No Hx Diabetes: No Hx Thyroid Disease: No - MUSCULOSKELETAL Hx Musculoskeletal Disorders: Yes Hx Gout: Yes Comment:: non compliant with medication/per patient - PSYCH Hx Psych Problems: No - HEMATOLOGY/ONCOLOGY Hx Hematology/Oncology Disorders: No Family Medical History Any Significant Family History?: No Hx Cancer: Father Hx Stroke: Mother Physical Exam - General General Appearance: Alert, Oriented x3, Cooperative, No acute distress, Other (cachectic) - Head Head exam: Normal inspection - Eye Eye exam: Normal appearance, PERRL, EOMI Pupils: Normal accommodation - ENT ENT exam: Normal exam, Mucous membranes moist, Normal external ear exam, Normal orophraynx Ear exam: Normal external inspection. negative: External canal tenderness Nasal Exam: Normal inspection. negative: Discharge, Sinus tenderness Mouth exam: Normal external inspection, Tongue normal Teeth exam: Normal inspection. negative: Dental caries Throat exam: Normal inspection. negative: Tonsillar erythema, Tonsillar exudate - Neck Neck exam: Normal inspection, Full ROM. negative: Tenderness - Respiratory Respiratory exam: Normal lung sounds bilaterally. negative: Respiratory distress - Cardiovascular Cardiovascular Exam: Regular rate, Normal rhythm, Normal heart sounds - GI/Abdominal GI/Abdominal exam: Soft, Normal bowel sounds. negative: Tenderness - Rectal Rectal exam: Deferred - exam: Deferred - Extremities Extremities exam: Normal inspection, Full ROM, Normal capillary refill. negative: Tenderness - Back Back exam: Reports: Normal inspection, Full ROM. Denies: Muscle spasm, Rash noted, Tenderness - Neurological Neurological exam: Abnormal gait, Alert, CN II-XII intact, Oriented X3, Other (slurred speech [chronic]) - Psychiatric Psychiatric exam: Normal affect, Normal mood - Skin Skin exam: Dry, Intact, Normal color, Warm Course Vital Signs 03/26/19 03/26/19 03/26/19 13:25 14:00 14:30 Temperature 97.9 F Pulse Rate 63 Pulse Rate [ 76 80 Pulse Ox Probe] Respiratory 20 16 16 Rate Blood Pressure 169/93 Blood Pressure 134/87 125/84 [Right Arm] Pulse Ox 93 L 97 97 03/26/19 03/26/19 03/26/19 15:30 17:04 17:30 Temperature Pulse Rate Pulse Rate [ 72 75 Pulse Ox Probe] Respiratory 16 16 16 Rate Blood Pressure Blood Pressure 125/81 128/81 134/95 [Right Arm] Pulse Ox 97 98 98 - Reevaluation(s) Reevaluation #1: 03/26/19 18:15 records were pulled from [facility] and pt has been having difficulties that are gradually getting worse w eating and speech. he has an appt w gi the end of april. it appears that pt has lost approximately 70 lbs in 5 mos. i am attempting to reach pts family doc so that further evaluation can be done sooner. perhaps pt needs a peg tube if he is unable to eat Reevaluation #2: 03/26/19 18:29 d/w dr lomas Medical Decision Making - Lab Data Result diagrams: 03/26/19 13:35 03/26/19 13:35 Lab Results 03/26/19 03/26/19 03/26/19 Range/Units 13:35 13:35 16:50 WBC 9.9 (4.2-12.2) K/uL RBC 5.94 H (4.40-5.70) M/uL Hgb 14.0 (14.0-18.0) gm/dl Hct 43.5 (42.0-52.0) % MCV 73.2 L (81-97) fl MCH 23.5 L (27-33) pg MCHC 32.2 (32-36) g/dl RDW 19.3 H (11.5-14.5) % Plt Count 337 (130-400) K/uL MPV 9.6 (7.4-10.4) fl Gran % 41.6 L (47-80) % Lymphocytes % 47.3 H (16-45) % Monocytes % 7.5 (0-9) % Eosinophils % 3.4 (0-6) % Basophils % 0.2 (0-6) % Absolute Neutrophils 4.10 Sodium 144 (136-145) mmol/L Potassium 3.9 (3.4-4.5) mmol/L Chloride 101 (98-107) mmol/L Carbon Dioxide 32.0 H (22-29) mmol/L Anion Gap 11.0 (7-16) BUN 17 (8-23) mg/dL Creatinine 1.2 (0.7-1.2) mg/dL Estimated GFR > 60 mL/min Random Glucose 118 H (74-109) mg/dL Calcium 9.7 (8.8-10.2) mg/dL Total Bilirubin 0.30 (0.2-1.0) mg/dL AST 13 (10.0-50.0) U/L ALT 6 (<41) U/L Alkaline Phosphatase 103 (40-129) U/L Total Protein 8.1 (6.6-8.7) g/dL Albumin 4.5 (4.0-5.0) g/dL Globulin 3.6 (1.4-4.8) gm/dL Albumin/Globulin Ratio 1.3 (1.1-1.8) Lipase 57 (13-60) U/L Urine Color Yellow Urine Appearance Clear Urine pH 6.0 (5.0-8.0) Ur Specific [place] 1.025 (1.002-1.030) Urine Protein 30 mg/dl H (NEGATIVE) Urine Glucose (UA) Negative (NEGATIVE) Urine Ketones Trace H (NEGATIVE) Urine Blood Negative (NEGATIVE) Urine Nitrite Negative (NEGATIVE) Urine Bilirubin Negative (NEGATIVE) Urine Urobilinogen 1.0 (0.20 - 1.00) E.U./dL Ur Leukocyte Esterase Negative (NEGATIVE) Disposition Disposition: Discharge Clinical Impression: Weakness, Weight loss Dysphagia Qualifiers: Dysphagia type: unspecified Qualified Code(s): R13.10 - Dysphagia, unspecified Disposition: Home, Self-Care Condition: (2) Stable Instructions: Weakness (ED), Dysphagia (ED) Additional Instructions: follow up with family doctor on wednesday. return sooner if worse. drink boost and ensure Forms: Patient Portal Access Quality - Quality Measures Quality Measures: N/A - Blood Pressure Screening Does Patient Have Any of the Following: Active Dx of HTN Blood Pressure Classification: Hypertensive Reading Systolic Measurement: 169 Diastolic Measurement: 93 Screening for High Blood Pressure: Patient Exclusion, Hx of HTN [G9744]
--- NOTE | 2019-03-29 08:21 | RADIOLOGY REPORT ---
EXAM: CHEST, TWO VIEWS HISTORY: DIFFICULTY IN BREATHING, WEAKNESS. TECHNIQUE: AP and lateral views of the chest were obtained. Comparison: Two view chest 11/09/18. FINDINGS: Stable heart size. Scattered diffuse interstitial infiltrate appearing essentially unchanged from before probably representing fibrosis. Allowing for this, no definite acute infiltrate is seen today and no pleural effusion or pneumothorax evident. There is anterior wedging of some mid thoracic vertebra, particularly T9, probably all present previously although somewhat poorly seen on the routine chest technique, however, these appear to have been present on a prior sagittal reformatted series from the chest CT of 07/07/16 as well. IMPRESSION: 1. FAIRLY EXTENSIVE INTERSTITIAL DISEASE BILATERALLY APPEARING ESSENTIALLY UNCHANGED FROM BEFORE PRESUMABLY REPRESENTING FAIRLY EXTENSIVE FIBROSIS. 2. 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 3. CALCIFICATION AND TORSION OF THE AORTA. JOB NUMBER: [id number] [facility]
--- NOTE | 2019-03-29 09:12 | CT SCAN REPORT ---
EXAM: HEAD CT HISTORY: SLURRED SPEECH WITH DROOLING. TECHNIQUE: Noncontrast head CT was obtained. Comparison: None. FINDINGS: The ventricles and subarachnoid spaces are unremarkable. There is no mass or mass effect. No intra or extraaxial hemorrhage. No CT evidence for large acute territorial infarct. No fracture or acute osseous abnormality. The visualized sinuses and orbits are unremarkable. IMPRESSION: 1. MILD ATROPHY. 2. NO MASS, HEMORRHAGE OR ACUTE INTRACRANIAL PROCESS. JOB NUMBER: [id number] [facility]
== END 2019-03-26 18:45 | disposition home or self-care (01) ==
LOC: ER 13:19
DX: R53.1 Weakness (principal); R13.10 Dysphagia, unspecified; R06.02 Shortness of breath; R63.4 Abnormal weight loss; R47.81 Slurred speech; J44.9 Chronic obstructive pulmonary disease, unspecified; I10 Essential (primary) hypertension; Z87.891 Personal history of nicotine dependence
CPT/HCPCS: 70450; 71046; 80053; 81003; 83690; 85025; 93005; 93010; 99284

== ENCOUNTER 2019-05-03 21:59 | Emergency (ER) | payer MEDICARE ==
--- NOTE | 2019-05-03 22:28 | Emergency Department Record ---
History of Present Illness - General Chief Complaint: Shortness of breath Stated Complaint: SOB Time Seen by Provider: 05/03/19 22:01 Source: Patient Mode of Arrival: Ambulatory Limitations: No limitations - History of Present Illness Initial Comments: The patient is here due to a possible aspiration at home. He has a recent hx of swallowing issues and is supposed to be on mainly a pureed diet. He was eating a hamburger tonight due to trying to gain weight and then started choking. He choked and coughed for about an hour and then decided to come to the ER. The patient denies any CP, SOB, or difficulty swallowing but state she is just unable to stop coughin. MD Complaint: Cough, Shortness of breath Onset/Timin -: Hour(s) Context: Choking/aspiration Associated Symptoms: Denies other symptoms Treatments Prior to Arrival: None - Related Data Home Oxygen Therapy: Yes (PRN) Home Oxygen Amount: 2 Liters Previous Rx's Medication Instructions Recorded Levofloxacin [Levaquin] 500 mg PO DAILY #6 tablet 05/03/19 Allergies Allergy/AdvReac Type Severity Reaction Status Date / Time Penicillins Allergy PT UNSURE Verified 11/09/18 13:29 OF REACTION Travel Screening - Travel/Exposure Within Last 30 Days Have you traveled within the last 30 days?: No - Travel/Exposure Within Last Year Have you traveled outside the [place] in the last year?: No - Additonal Travel Details Have you been exposed to anyone with a communicable illness?: No - Travel Symptoms Symptom Screening: None Review of Systems Constitutional: Denies: Chills, Fever Eyes: Denies: Eye discharge ENT: Denies: Congestion Respiratory: Reports: Cough. Denies: Dyspnea Cardiovascular: Denies: Chest pain Endocrine: Denies: Fatigue Gastrointestinal: Denies: Diarrhea Genitourinary: Denies: Dysuria Musculoskeletal: Denies: Arthralgia Skin: Denies: Bruising Past Medical History - SOCIAL HISTORY Smoking Status: Former smoker Alcohol Use: Heavy Drug Use: Occasional Drug Use Detail:: Marijuana - RESPIRATORY Hx Respiratory Disorders: Yes Hx COPD: Yes - CARDIOVASCULAR Hx Cardio Disorders: Yes Hx Hypertension: Yes - NEURO Hx Neuro Disorders: No Comment:: patient states he has intermittent tremors - GI Hx GI Disorders: No - Hx Genitourinary Disorders: No - ENDOCRINE Hx Endocrine Disorders: No Hx Diabetes: No Hx Thyroid Disease: No - MUSCULOSKELETAL Hx Musculoskeletal Disorders: Yes Hx Gout: Yes Comment:: non compliant with medication/per patient - PSYCH Hx Psych Problems: No - HEMATOLOGY/ONCOLOGY Hx Hematology/Oncology Disorders: No Family Medical History Any Significant Family History?: Yes Hx Cancer: Father Hx Stroke: Mother Physical Exam - General General Appearance: Alert, Oriented x3, Cooperative, No acute distress - Head Head exam: Atraumatic, Normocephalic, Normal inspection - Eye Eye exam: Normal appearance, PERRL - ENT Throat exam: Normal inspection. negative: Tonsillar erythema, Tonsillar exudate - Neck Neck exam: Normal inspection, Full ROM. negative: Tenderness - Respiratory Respiratory exam: Decreased breath sounds (bilaterally.), Rhonchi (bilaterally.). negative: Normal lung sounds bilaterally, Accessory muscle use, Prolonged expiratory, Respiratory distress, Wheezes - Cardiovascular Cardiovascular Exam: Regular rate, Normal rhythm, Normal heart sounds - GI/Abdominal GI/Abdominal exam: Soft, Normal bowel sounds. negative: Tenderness - Extremities Extremities exam: Normal inspection, Full ROM, Normal capillary refill. negative: Tenderness - Neurological Neurological exam: Alert. negative: Motor sensory deficit Course Vital Signs 05/03/19 05/03/19 22:02 22:03 Temperature 97.3 F L Pulse Rate [ 96 H Pulse Ox Probe] Respiratory 28 H Rate Blood Pressure 152/95 [Left Arm] Pulse Ox 84 L - Reevaluation(s) Reevaluation #1: The patient is doing well at this time and denies any SOB or CP but is still int ermittently coughing. His CXR does not demonstrate any acute abnormality and does demonstrate Pulmonary Fibrosis. On exam his lung sounds are diminished bilaterally. I did discuss the plan with the patient and did recommend hospital admission for Pulmonary Consultation and probable bronchoscopy. The patient is refusing the plan to be transferred. I did explain to him and his that I am concerned he significantly aspirated even though his oxygenation is normal and lung sounds equal bilaterally. The risks of NOT being transferred and admitted are that the patient could develop aspiration pneumonia which could lead to respiratory failure, an [place] and even . Presently the patient does have proper decision making capacity and understands and accepts the risks of refusing. He is to see his PCP ERMA and to return to the ER for any worsening symptoms. 05/03/19 23:18 Reevaluation #2: The patient is doing very well at this time. He denies any SOB or DOROTHY and states his coughing is improved. I did discuss again the need for admission and transfer but he is still refusing. He and his understand the risks and accept the risks of leaving and NOT being admitted. 05/03/19 23:45 Medical Decision Making - Lab Data Result diagrams: 05/03/19 22:30 05/03/19 22:30 Disposition Disposition: Discharge Clinical Impression: Aspiration into lower respiratory tract Qualifiers: Encounter type: initial encounter Qualified Code(s): T17.800A - Unspecified foreign body in other parts of respiratory tract causing asphyxiation, initial encounter Disposition: Home, Self-Care Condition: (2) Stable Instructions: Dyspnea (ED) Additional Instructions: Please continue your regular medicines and continue the Levaquin as directed. Please see your Lung Specialist ERMA and also please see your family doctor later this week. Return to the ER for any worsening symptoms of cough or any shortness or breath or trouble breathing. Prescriptions: Levofloxacin [Levaquin] 500 mg PO DAILY #6 tablet Forms: Patient Portal Access Time of Disposition: 23:49 Quality - Quality Measures Quality Measures: N/A - Blood Pressure Screening View Details: Yes Does Patient Have Any of the Following: Active Dx of HTN Blood Pressure Classification: Hypertensive Reading Systolic Measurement: 130 Diastolic Measurement: 90 Screening for High Blood Pressure: Patient Exclusion, Hx of HTN [G9744]
[2019-05-03 22:41] LABS: ABSOLUTE NEUTROPHIL COUNT 5.48; BASO % 0.3 % (0-6); EOS % 2.1 % (0-6); HEMATOCRIT 45.2 % (42.0-52.0); HEMOGLOBIN 15.1 gm/dl (14.0-18.0); LYMPH % 38.1 % (16-45); MEAN CELL VOLUME 71.3 fl (81-97); MEAN CORPUSCULAR HEMOGLOBIN 23.8 pg (27-33); MEAN CORPUSCULAR HGB CONC 33.4 g/dl (32-36); MEAN PLATELET VOLUME 9.2 fl (7.4-10.4); MONO % 7.5 % (0-9); PLATELET COUNT 292 K/uL (130-400); RED BLOOD COUNT 6.34 M/uL (4.40-5.70); WHITE BLOOD COUNT W/O DIFF 10.5 K/uL (4.2-12.2)
[2019-05-03 22:55] LABS: RED CELL DISTRIBUTION WIDTH 20.9 % (11.5-14.5)
[2019-05-03 22:58] LABS: ALB/GLOB RATIO 1.1 (1.1-1.8); ALBUMIN 4.2 g/dL (4.0-5.0); BILIRUBIN,TOTAL 0.4 mg/dL (0.2-1.0); CREATININE 1.4 mg/dL (0.7-1.2); TOTAL PROTEIN 8.1 g/dL (6.6-8.7)
[2019-05-03] MEDS ORDERED: LEVOFLOXACIN 500 MG TABLET PO ONE (23:15)
[2019-05-03] MEDS ORDERED: 0.9 % SODIUM CHLORIDE 1,000 ML BAG IV ONE (23:18)
--- NOTE | 2019-05-04 00:02 | Emergency Department Record ---
History of Present Illness - General Chief Complaint: Shortness of breath Stated Complaint: SOB Time Seen by Provider: 05/03/19 22:01 Source: Patient Mode of Arrival: Ambulatory Limitations: No limitations - History of Present Illness Onset/Timin -: Hour(s) Context: Choking/aspiration Associated Symptoms: Denies other symptoms Treatments Prior to Arrival: None - Related Data Home Oxygen Therapy: Yes (PRN) Home Oxygen Amount: 2 Liters Previous Rx's Medication Instructions Recorded Levofloxacin [Levaquin] 500 mg PO DAILY #6 tablet 05/03/19 Allergies Allergy/AdvReac Type Severity Reaction Status Date / Time Penicillins Allergy PT UNSURE Verified 11/09/18 13:29 OF REACTION Travel Screening - Travel/Exposure Within Last 30 Days Have you traveled within the last 30 days?: No - Travel/Exposure Within Last Year Have you traveled outside the [place] in the last year?: No - Additonal Travel Details Have you been exposed to anyone with a communicable illness?: No - Travel Symptoms Symptom Screening: None Review of Systems Constitutional: Denies: Chills, Fever Eyes: Denies: Eye discharge ENT: Denies: Congestion Respiratory: Reports: Cough. Denies: Dyspnea Cardiovascular: Denies: Chest pain Endocrine: Denies: Fatigue Gastrointestinal: Denies: Diarrhea Genitourinary: Denies: Dysuria Musculoskeletal: Denies: Arthralgia Skin: Denies: Bruising Past Medical History - SOCIAL HISTORY Smoking Status: Former smoker Alcohol Use: Heavy Drug Use: Occasional Drug Use Detail:: Marijuana - RESPIRATORY Hx Respiratory Disorders: Yes Hx COPD: Yes - CARDIOVASCULAR Hx Cardio Disorders: Yes Hx Hypertension: Yes - NEURO Hx Neuro Disorders: No Comment:: patient states he has intermittent tremors - GI Hx GI Disorders: No - Hx Genitourinary Disorders: No - ENDOCRINE Hx Endocrine Disorders: No Hx Diabetes: No Hx Thyroid Disease: No - MUSCULOSKELETAL Hx Musculoskeletal Disorders: Yes Hx Gout: Yes Comment:: non compliant with medication/per patient - PSYCH Hx Psych Problems: No - HEMATOLOGY/ONCOLOGY Hx Hematology/Oncology Disorders: No Family Medical History Any Significant Family History?: Yes Hx Cancer: Father Hx Stroke: Mother Physical Exam - General Limitations: No limitations Course Vital Signs 05/03/19 05/03/19 05/03/19 22:02 22:03 22:34 Temperature 97.3 F L Pulse Rate [ 96 H 107 H Pulse Ox Probe] Respiratory 28 H 24 Rate Blood Pressure 152/95 [Left Arm] Pulse Ox 84 L 100 05/03/19 05/03/19 22:53 23:48 Temperature Pulse Rate [ 92 H 91 H Pulse Ox Probe] Respiratory 24 Rate Blood Pressure 123/98 130/90 [Left Arm] Pulse Ox 96 98 Medical Decision Making - Data Complexity MDM Data: Labs Ordered and/or Reviewed, X-Ray Ordered and/or Reviewed - Lab Data Result diagrams: 05/03/19 22:30 05/03/19 22:30 Lab Results 05/03/19 05/03/19 Range/Units 22:30 22:30 WBC 10.5 (4.2-12.2) K/uL RBC 6.34 H (4.40-5.70) M/uL Hgb 15.1 (14.0-18.0) gm/dl Hct 45.2 (42.0-52.0) % MCV 71.3 L (81-97) fl MCH 23.8 L (27-33) pg MCHC 33.4 (32-36) g/dl RDW 20.9 H (11.5-14.5) % Plt Count 292 (130-400) K/uL MPV 9.2 (7.4-10.4) fl Gran % 52.0 (47-80) % Lymphocytes % 38.1 (16-45) % Monocytes % 7.5 (0-9) % Eosinophils % 2.1 (0-6) % Basophils % 0.3 (0-6) % Absolute Neutrophils 5.48 Sodium 144 (136-145) mmol/L Potassium 4.5 (3.4-4.5) mmol/L Chloride 102 (98-107) mmol/L Carbon Dioxide 29.0 (22-29) mmol/L Anion Gap 13.0 (7-16) BUN 17 (8-23) mg/dL Creatinine 1.4 H (0.7-1.2) mg/dL Estimated GFR 53 mL/min Random Glucose 97 (74-109) mg/dL Calcium 9.8 (8.8-10.2) mg/dL Total Bilirubin 0.40 (0.2-1.0) mg/dL AST 16 (10.0-50.0) U/L ALT 6 (<41) U/L Alkaline Phosphatase 96 (40-129) U/L Total Protein 8.1 (6.6-8.7) g/dL Albumin 4.2 (4.0-5.0) g/dL Globulin 3.9 (1.4-4.8) gm/dL Albumin/Globulin Ratio 1.1 (1.1-1.8) - Radiology Data Radiology results: Report reviewed (CXR: Pulm Fibrosis, no change from old.) Disposition Clinical Impression: Aspiration into lower respiratory tract Qualifiers: Encounter type: initial encounter Qualified Code(s): T17.800A - Unspecified foreign body in other parts of respiratory tract causing asphyxiation, initial encounter Disposition: Home, Self-Care Condition: (2) Stable Instructions: Dyspnea (ED) Additional Instructions: Please continue your regular medicines and continue the Levaquin as directed. Please see your Lung Specialist [facility] and also please see your family doctor later this week. Return to the ER for any worsening symptoms of cough or any shortness or breath or trouble breathing. Prescriptions: Levofloxacin [Levaquin] 500 mg PO DAILY #6 tablet Forms: Patient Portal Access Quality - Quality Measures Quality Measures: N/A - Blood Pressure Screening View Details: Yes Does Patient Have Any of the Following: Active Dx of HTN Blood Pressure Classification: Hypertensive Reading Systolic Measurement: 130 Diastolic Measurement: 90 Screening for High Blood Pressure: Patient Exclusion, Hx of HTN [G9744]
--- NOTE | 2019-05-08 13:23 | RADIOLOGY REPORT ---
STUDY: Two view chest. CLINICAL HISTORY: Choked on food. Coughing spell. difficulty breathing. TECHNIQUE: PA and lateral upright views of the chest were obtained. COMPARISON: 03/26/2019 FINDINGS: The heart is normal in size. There is calcification and mild tortuosity of the aorta. Chronic interstitial changes are present within both lungs and are not significantly different. The lungs are emphysematous. There are no visible acute infiltrates or effusions. There is no pneumothorax. There are old healed left rib fractures. Chronic compression deformities are present within the thoracic spine. No acute osseous abnormalities are identified. IMPRESSION: 1. Stable chronic obstructive pulmonary disease and pulmonary fibrosis. 2. No acute chest pathology. MTDD
== END 2019-05-04 00:04 | disposition home or self-care (01) ==
LOC: ER 21:59
DX: T17.800A Unspecified foreign body in other parts of respiratory tract causing asphyxiation, initial encounter (principal); R06.02 Shortness of breath; R05 Cough; J44.9 Chronic obstructive pulmonary disease, unspecified; I10 Essential (primary) hypertension; Z99.81 Dependence on supplemental oxygen; Z87.891 Personal history of nicotine dependence
CPT/HCPCS: 71046; 80053; 85025; 99284; J7030

== ENCOUNTER 2019-07-12 13:34 | Emergency (ER) | payer MEDICARE ==
--- NOTE | 2019-07-12 14:15 | Emergency Department Record ---
History of Present Illness - General Chief Complaint: Difficulty Breathing Stated Complaint: HIGH RESPERATION RATE,GTUBE ISSUES Time Seen by Provider: 07/12/19 13:54 Source: Patient Mode of Arrival: Wheelchair - History of Present Illness Initial Comments: visiting nurses were concerned he aspirated because he was breathing fast and upon arrival here breathing is back to normal and patient said the nurse panicked. Patient denies chest pain and uses home oxygen 2 liters per minute for his COPD and he has a feeding tube and nursing flushed the feeding tube and it was easy to flush and he was able to draw the fluid back out of the g tube. Complaint: Shortness of breath Onset/Timin -: Days(s) Severity: Moderate Severity scale (1-10): 1 Quality: Aching - Related Data Home Oxygen Therapy: Yes (has consentrated) Home Oxygen Amount: 2 Liters Allergies Allergy/AdvReac Type Severity Reaction Status Date / Time Penicillins Allergy PT UNSURE Verified 07/12/19 13:46 OF REACTION Travel Screening - Travel/Exposure Within Last 30 Days Have you traveled within the last 30 days?: No - Travel/Exposure Within Last Year Have you traveled outside the [place] in the last year?: No - Additonal Travel Details Have you been exposed to anyone with a communicable illness?: No - Travel Symptoms Symptom Screening: None Review of Systems Reviewed: No additional complaints except as noted below Constitutional: Reports: As per HPI. Denies: Chills, Fever, Malaise, Night sweats, Weakness, Weight change Eyes: Reports: As per HPI. Denies: Eye discharge, Eye pain, Photophobia, Vision change ENT: Reports: As per HPI. Denies: Congestion, Dental pain, Ear pain, Epistaxis, Hearing loss, Throat pain Respiratory: Reports: As per HPI. Denies: Cough, Dyspnea, Hemoptysis, Stridor, Wheezes Cardiovascular: Reports: As per HPI. Denies: Arrhythmia, Chest pain, Dyspnea on exertion, Edema, Murmurs, Orthopnea, Palpitations, Paroxysmal nocturnal dyspnea, Rheumatic Fever, Syncope Endocrine: Reports: As per HPI. Denies: Fatigue, Heat or cold intolerance, Polydipsia, Polyuria Gastrointestinal: Reports: As per HPI. Denies: Abdominal pain, Constipation, Diarrhea, Hematemesis, Hematochezia, Melena, Nausea, Vomiting Genitourinary: Reports: As per HPI. Denies: Dysuria, Frequency, Hematuria, Incontinence, Retention, Testicular pain, Testicular mass, Urgency Musculoskeletal: Reports: As per HPI. Denies: Arthralgia, Back pain, Gout, Joint swelling, Myalgia, Neck pain Skin: Reports: As per HPI. Denies: Bruising, Change in color, Change in hair/nails, Lesions, Pruritus, Rash Neurological: Reports: As per HPI. Denies: Abnormal gait, Confusion, Headache, Numbness, Paresthesias, Seizure, Tingling, Tremors, Vertigo, Weakness Psychiatric: Reports: As per HPI. Denies: Anxiety, Auditory hallucinations, D epression, Homicidal thoughts, Suicidal thoughts, Visual hallucinations Hematological/Lymphatic: Reports: As per HPI. Denies: Anemia, Blood Clots, Easy bleeding, Easy bruising, Swollen glands Past Medical History - SOCIAL HISTORY Smoking Status: Former smoker Alcohol Use: None Drug Use: None - RESPIRATORY Hx Respiratory Disorders: Yes Hx Bronchitis: Yes Hx COPD: Yes Hx Dyspnea: Yes Comment:: Home oxygen - CARDIOVASCULAR Hx Cardio Disorders: Yes Hx Hypertension: Yes - NEURO Hx Neuro Disorders: No Comment:: patient states he has intermittent tremors - GI Hx GI Disorders: Yes Comment:: G-tube - Hx Genitourinary Disorders: Yes - ENDOCRINE Hx Endocrine Disorders: No Hx Diabetes: No Hx Thyroid Disease: No - MUSCULOSKELETAL Hx Musculoskeletal Disorders: Yes Hx Gout: Yes Comment:: non compliant with medication/per patient - PSYCH Hx Psych Problems: No - HEMATOLOGY/ONCOLOGY Hx Hematology/Oncology Disorders: No Family Medical History Any Significant Family History?: Yes Hx Cancer: Father Hx Stroke: Mother Physical Exam - General General Appearance: Alert, Oriented x3, Cooperative, No acute distress - Head Head exam: Normal inspection - Eye Eye exam: Normal appearance, PERRL Pupils: Normal accommodation - ENT ENT exam: Normal exam, Mucous membranes moist, Normal external ear exam, Normal orophraynx, TM's normal bilaterally Ear exam: Normal external inspection. negative: External canal tenderness Nasal Exam: Normal inspection. negative: Discharge, Sinus tenderness Mouth exam: Normal external inspection, Tongue normal Teeth exam: Normal inspection. negative: Dental caries Throat exam: Normal inspection. negative: Tonsillar erythema, Tonsillar exudate - Neck Neck exam: Normal inspection, Full ROM. negative: Tenderness - Respiratory Respiratory exam: Normal lung sounds bilaterally. negative: Respiratory distress - Cardiovascular Cardiovascular Exam: Regular rate, Normal rhythm, Normal heart sounds - GI/Abdominal GI/Abdominal exam: Soft, Normal bowel sounds. negative: Tenderness - Rectal Rectal exam: Deferred - exam: Deferred - Extremities Extremities exam: Normal inspection, Full ROM, Normal capillary refill. negative: Tenderness - Back Back exam: Reports: Normal inspection, Full ROM. Denies: Muscle spasm, Rash noted, Tenderness - Neurological Neurological exam: Alert, Normal gait, Oriented X3, Reflexes normal - Psychiatric Psychiatric exam: Normal affect, Normal mood - Skin Skin exam: Dry, Intact, Normal color, Warm Course Vital Signs 07/12/19 13:36 Temperature 98.7 F Pulse Rate 76 Respiratory 22 Rate Blood Pressure 142/96 Pulse Ox 98 Medical Decision Making - Data Complexity MDM Data: X-Ray Ordered and/or Reviewed (stable copd and pulmonary fibrosis) Disposition Clinical Impression: COPD (chronic obstructive pulmonary disease) Qualifiers: COPD type: COPD with acute exacerbation Qualified Code(s): J44.1 - Chronic obstructive pulmonary disease with (acute) exacerbation Disposition: Home, Self-Care Condition: (1) Good Instructions: Emphysema (ED) Additional Instructions: continue home medications and oxygen follow up with family DR in one week Forms: Patient Portal Access Time of Disposition: 14:41 Quality - Quality Measures Quality Measures: N/A - Blood Pressure Screening Does Patient Have Any of the Following: No, Active Dx of HTN Blood Pressure Classification: Hypertensive Reading Systolic Measurement: 142 Diastolic Measurement: 96 Screening for High Blood Pressure: Patient Exclusion, Hx of HTN [G9744]
--- NOTE | 2019-07-13 10:49 | RADIOLOGY REPORT ---
EXAM: CHEST, TWO VIEWS HISTORY: SHORTNESS OF BREATH FOR TWO DAYS. TECHNIQUE: Frontal and lateral views of the chest were obtained. Comparison: 05/19/19. FINDINGS: Again noted are findings consistent with advanced emphysematous changes as well as peripheral pulmonary fibrotic changes. The cardiomediastinal silhouette appears stable. Calcified thoracic aorta is present. Several old healed rib fractures are present. No dominant consolidation, pneumothorax or pleural effusions are identified. Osteopenia with mild wedging of central thoracic vertebral bodies. IMPRESSION: 1. NO SIGNIFICANT INTERVAL CHANGE IN EMPHYSEMATOUS CHANGES AND PERIPHERAL PULMONARY FIBROSIS. 2. NO CONSOLIDATION OR PNEUMOTHORAX. JOB NUMBER: [id number] MTDD
== END 2019-07-12 15:01 | disposition home or self-care (01) ==
LOC: ER 13:34
DX: J44.1 Chronic obstructive pulmonary disease with (acute) exacerbation (principal); I10 Essential (primary) hypertension; Z99.81 Dependence on supplemental oxygen; Z87.891 Personal history of nicotine dependence
CPT/HCPCS: 71046; 99283

== ENCOUNTER 2019-08-15 08:21 | Emergency (ER) | payer MEDICARE ==
--- NOTE | 2019-08-15 08:30 | Emergency Department Record ---
History of Present Illness - General Chief complaint: Male Urogenital Problem Stated complaint: UNABLE TO URINATE Time Seen by Provider: 08/15/19 08:26 Source: Patient Mode of Arrival: Ambulatory Limitations: No limitations - History of Present Illness Initial comments: 73 yo male presents with inability to urinate since last night. He has suprapubic pressure. No fever, nausea, or vomiting. He states this has occurred before a long time ago. No recent surgery. MD Complaint: Other (Urinary retention) -: Hour(s) Location: Penis Radiation: Suprapubic Severity: Severe Quality: Other (pressure) Improves with: None Worsens with: Palpation Reports: Urinary retention - Related Data Previous Rx's Medication Instructions Recorded Cephalexin [Keflex] 500 mg PO TID #21 cap 08/15/19 Allergies Allergy/AdvReac Type Severity Reaction Status Date / Time Penicillins Allergy PT UNSURE Verified 07/12/19 13:46 OF REACTION Review of Systems Constitutional: Denies: Chills, Fever, Malaise, Weakness Eyes: Denies: Eye discharge ENT: Denies: Congestion, Throat pain Respiratory: Denies: Cough, Dyspnea Cardiovascular: Denies: Chest pain, Syncope Endocrine: Denies: Fatigue Gastrointestinal: Reports: Abdominal pain. Denies: Diarrhea, Nausea, Vomiting Genitourinary: Reports: As per HPI, Retention. Denies: Discharge, Dysuria, Frequency, Hematuria Musculoskeletal: Denies: Arthralgia, Back pain, Myalgia Skin: Denies: Bruising, Change in color, Rash Neurological: Denies: Headache Psychiatric: Denies: Anxiety Hematological/Lymphatic: Denies: Easy bleeding, Easy bruising Past Medical History - SOCIAL HISTORY Smoking Status: Former smoker Alcohol Use: None Drug Use: None - RESPIRATORY Hx Respiratory Disorders: Yes Hx Bronchitis: Yes Hx COPD: Yes Hx Dyspnea: Yes Comment:: Home oxygen - CARDIOVASCULAR Hx Cardio Disorders: Yes Hx Hypertension: Yes - NEURO Hx Neuro Disorders: No Comment:: patient states he has intermittent tremors - GI Hx GI Disorders: Yes Comment:: G-tube - Hx Genitourinary Disorders: Yes - ENDOCRINE Hx Endocrine Disorders: No Hx Diabetes: No Hx Thyroid Disease: No - MUSCULOSKELETAL Hx Musculoskeletal Disorders: Yes Hx Gout: Yes Comment:: non compliant with medication/per patient - PSYCH Hx Psych Problems: No - HEMATOLOGY/ONCOLOGY Hx Hematology/Oncology Disorders: No Family Medical History Any Significant Family History?: Yes Hx Cancer: Father Hx Stroke: Mother Physical Exam - General General Appearance: Alert, Oriented x3, Cooperative, No acute distress Limitations: No limitations - Head Head exam: Atraumatic, Normal inspection - Eye Eye exam: Normal appearance. negative: Conjunctival injection - ENT ENT exam: Normal exam Ear exam: Normal external inspection Nasal Exam: Normal inspection Mouth exam: Normal external inspection - Neck Neck exam: Normal inspection - Respiratory Respiratory exam: Normal lung sounds bilaterally. negative: Respiratory distress - Cardiovascular Cardiovascular Exam: Regular rate, Normal rhythm, Normal heart sounds - GI/Abdominal GI/Abdominal exam: Soft, Tenderness (tender over the suprapubic area, flat and soft) - exam: Normal inspection. negative: Circumcision, Scrotal swelling, Testicular tenderness - Extremities Extremities exam: Normal inspection - Back Back exam: Reports: Full ROM. Denies: CVA tenderness (R), CVA tenderness (L) - Neurological Neurological exam: Alert, Oriented X3 - Psychiatric Psychiatric exam: Anxious - Skin Skin exam: Dry, Intact, Normal color, Warm Course - Reevaluation(s) Reevaluation #1: 08/15/19 09:00 Bladder scan demonstrated significant retention Patel was placed with immediate 600ml with symptomatic relief (Note: Informed by lab that the analyzer is down and significant delay in labs will occur) 08/15/19 09:37 UA is negative 08/15/19 09:38 08/15/19 09:38 Patel leg bag will be provided and taught 08/15/19 10:13 Lab requests a redraw due to hemolysis. 08/15/19 10:34 The BMP is normal 08/15/19 10:39 A message was left with Dr Neumann office for follow up with call back number with questions Medical Decision Making - Lab Data Result diagrams: 08/15/19 10:13 Disposition Disposition: Discharge Clinical Impression: Urinary retention Disposition: Home, Self-Care Condition: (1) Good Instructions: Urinary Retention in Men (ED), Patel Catheter Placement and Care (ED) Additional Instructions: You have been referred to the urology clinic at [facility] Call your doctor for follow up this week as well for a recheck Return to the ED if you have any concerns with the function of the catheter or its drainage Take the antibiotic as directed Prescriptions: Cephalexin [Keflex] 500 mg PO TID #21 cap Forms: Patient Portal Access Time of Disposition: 10:34 Quality - Quality Measures Quality Measures: N/A - Blood Pressure Screening Does Patient Have Any of the Following: Active Dx of HTN Blood Pressure Classification: Hypertensive Reading Systolic Measurement: 164 Diastolic Measurement: 97 Screening for High Blood Pressure: Patient Exclusion, Hx of HTN [G9744]
[2019-08-15] MEDS: LIDOCAINE UROJECT 10 ML APPL MM ONE (08:34)
[2019-08-15 09:26] LABS: URINE APPEARANCE CLEAR; URINE BILIRUBIN NEGATIVE (NEGATIVE); URINE BLOOD NEGATIVE (NEGATIVE); URINE COLOR YELLOW; URINE GLUCOSE (UA) NEGATIVE (NEGATIVE); URINE KETONE NEGATIVE (NEGATIVE); URINE LEUKOCYTE ESTERASE NEGATIVE (NEGATIVE); URINE NITRITE NEGATIVE (NEGATIVE); URINE PROTEIN NEGATIVE (NEGATIVE); URINE UROBILINOGEN 0.2 E.U./dL (0.20 - 1.00)
[2019-08-15] MEDS ORDERED: MORPHINE SULFATE 5 MG/ML VIAL IVP ONE (09:48)
[2019-08-15 10:28] LABS: BLOOD UREA NITROGEN 20 mg/dL (8-23); EST GLOMERULAR FILTRATION RATE > 60 mL/min
[2019-08-15 10:31] LABS: GLUCOSE,RANDOM 98 mg/dL (74-109)
== END 2019-08-15 10:52 | disposition home or self-care (01) ==
LOC: ER 08:21
DX: T83.011A Breakdown (mechanical) of indwelling urethral catheter, initial encounter (principal); R33.8 Other retention of urine; J44.9 Chronic obstructive pulmonary disease, unspecified; I10 Essential (primary) hypertension; Z87.891 Personal history of nicotine dependence; Z99.81 Dependence on supplemental oxygen
CPT/HCPCS: 80048; 81003; 99282; 99284

== ENCOUNTER 2019-08-15 19:24 | Emergency (ER) | payer MEDICARE ==
--- NOTE | 2019-08-15 19:30 | Emergency Department Record ---
History of Present Illness - General Stated complaint: RECHECK Time Seen by Provider: 08/15/19 19:27 Source: Patient Mode of Arrival: Ambulatory Limitations: No limitations - History of Present Illness Initial comments: 73 yo male presents to ED for evaluation of pain, possible leakage around clay catheter that was placed earlier today for urinary retention symptoms. Patient reports that his catheter is draining normally, denies dislodgement of the catheter, and denies fevers, chills, or the development of feeling ill following discharge home earlier today. MD Complaint: Other Onset/Timin -: Days(s) Location: Penis Radiation: None Severity: Moderate Quality: Aching Consistency: Constant Improves with: None Worsens with: None Reports: Denies other symptoms - Related Data Previous Rx's Medication Instructions Recorded Cephalexin [Keflex] 500 mg PO TID #21 cap 08/15/19 Allergies Allergy/AdvReac Type Severity Reaction Status Date / Time Penicillins Allergy PT UNSURE Verified 08/15/19 19:37 OF REACTION Review of Systems Constitutional: Denies: Chills, Fever, Malaise, Night sweats Eyes: Denies: Eye discharge, Eye pain ENT: Denies: Congestion, Ear pain, Epistaxis Respiratory: Denies: Cough, Dyspnea Cardiovascular: Denies: Chest pain, Dyspnea on exertion Endocrine: Denies: Fatigue, Heat or cold intolerance Gastrointestinal: Denies: Abdominal pain, Nausea, Vomiting Genitourinary: Reports: Retention. Denies: Incontinence Musculoskeletal: Denies: Arthralgia, Back pain Skin: Denies: Bruising, Change in color Neurological: Denies: Abnormal gait, Confusion, Headache, Seizure Psychiatric: Denies: Anxiety Hematological/Lymphatic: Denies: Anemia, Blood Clots Past Medical History - SOCIAL HISTORY Smoking Status: Former smoker Drug Use: None - RESPIRATORY Hx Respiratory Disorders: Yes Hx Bronchitis: Yes Hx COPD: Yes Hx Dyspnea: Yes Comment:: Home oxygen - CARDIOVASCULAR Hx Cardio Disorders: Yes Hx Hypertension: Yes - NEURO Hx Neuro Disorders: No Comment:: patient states he has intermittent tremors - GI Hx GI Disorders: Yes Comment:: G-tube - Hx Genitourinary Disorders: Yes - ENDOCRINE Hx Endocrine Disorders: No Hx Diabetes: No Hx Thyroid Disease: No - MUSCULOSKELETAL Hx Musculoskeletal Disorders: Yes Hx Gout: Yes Comment:: non compliant with medication/per patient - PSYCH Hx Psych Problems: No - HEMATOLOGY/ONCOLOGY Hx Hematology/Oncology Disorders: No Family Medical History Hx Cancer: Father Hx Stroke: Mother Physical Exam - General General Appearance: Alert, Oriented x3, Cooperative, Mild distress, Other (Ambulates with walker on examination) Limitations: No limitations - Head Head exam: Atraumatic, Normocephalic, Normal inspection Head exam detail: negative: Abrasion, Contusion, Infante's sign, General tenderness, Hematoma, Laceration - Eye Eye exam: Normal appearance. negative: Conjunctival injection, Periorbital swelling, Periorbital tenderness, Scleral icterus - ENT Ear exam: negative: Auricular hematoma, Auricular trauma Nasal Exam: negative: Active bleeding, Discharge, Dried blood, Foreign body Mouth exam: negative: Drooling, Laceration, Muffled voice, Tongue elevation - Neck Neck exam: Normal inspection. negative: Meningismus, Tenderness - Respiratory Respiratory exam: Normal lung sounds bilaterally. negative: Rales, Respiratory distress, Rhonchi, Stridor - Cardiovascular Cardiovascular Exam: Regular rate, Normal rhythm, Normal heart sounds - GI/Abdominal GI/Abdominal exam: Soft. negative: Rebound, Rigid, Tenderness - Rectal Rectal exam: Deferred - exam: Deferred - Back Back exam: Reports: Normal inspection. Denies: CVA tenderness (R), CVA tenderness (L) - Neurological Neurological exam: Alert, Normal gait, Oriented X3 - Psychiatric Psychiatric exam: Normal affect, Normal mood - Skin Skin exam: Normal color. negative: Abrasion Type of lesion: negative: abrasion Course - Reevaluation(s) Reevaluation #1: 08/15/19 19:57 UA reviewed and appears negative for infection. Nursing staff flushed the patient's catheter, flushing well on re-examination with very minimal leakage around the catheter. Patient reports that he is feeling much better as well, appears stable for dis charge at this time. Disposition Disposition: Discharge Clinical Impression: Malfunction of Clay catheter Qualifiers: Encounter type: initial encounter Qualified Code(s): T83.011A - Breakdown (mechanical) of indwelling urethral catheter, initial encounter Disposition: Home, Self-Care Condition: (2) Stable Instructions: Clay Catheter Placement and Care (ED) Additional Instructions: Return to ED if your symptoms worsen or if you have any concerns. Follow-up with Dr. Guan on the 29th of this month as directed. Forms: Patient Portal Access Time of Disposition: 19:59 Quality - Quality Measures Quality Measures: N/A - Blood Pressure Screening Does Patient Have Any of the Following: No Blood Pressure Classification: Pre-Hypertensive BP Reading Systolic Measurement: 153 Diastolic Measurement: 87 Screening for High Blood Pressure: < Pre-Hypertensive BP, F/U Documented > [G8950] Pre-Hypertensive Follow-up Interventions: Referral to alternative/primary care provider.
== END 2019-08-15 20:17 | disposition home or self-care (01) ==
LOC: ER 19:24
DX: T83.011A Breakdown (mechanical) of indwelling urethral catheter, initial encounter (principal); N48.89 Other specified disorders of penis; J44.9 Chronic obstructive pulmonary disease, unspecified; I10 Essential (primary) hypertension; Z87.891 Personal history of nicotine dependence; Z99.81 Dependence on supplemental oxygen

== ENCOUNTER 2019-08-19 07:01 | Emergency (ER) | payer MEDICARE ==
[2019-08-19] MEDS ORDERED: LIDOCAINE UROJECT 10 ML APPL MM ONE (07:17)
--- NOTE | 2019-08-19 07:23 | Emergency Department Record ---
History of Present Illness - General Chief complaint: Male Urogenital Problem Stated complaint: Clay issues Time Seen by Provider: 08/19/19 07:09 Source: Patient, Family Mode of Arrival: Ambulatory Limitations: No limitations - History of Present Illness Initial comments: The patient has had a clay catheter for 5 days and now this AM it is not draining correctly and has some blood present in the bag. The patient denies any pain or discomfort but believes he may have pulled on it. MD Complaint: Other Onset/Timin -: Days(s) Severity: Moderate Severity scale (1-10): 4 Quality: Aching, Burning Consistency: Constant, Intermittent - Related Data Previous Rx's Medication Instructions Recorded Cephalexin [Keflex] 500 mg PO TID #21 cap 08/15/19 Allergies Allergy/AdvReac Type Severity Reaction Status Date / Time Penicillins Allergy PT UNSURE Verified 08/19/19 07:16 OF REACTION Travel Screening - Travel/Exposure Within Last 30 Days Have you traveled within the last 30 days?: No - Travel/Exposure Within Last Year Have you traveled outside the [place] in the last year?: No - Additonal Travel Details Have you been exposed to anyone with a communicable illness?: No - Travel Symptoms Symptom Screening: None Review of Systems Constitutional: Denies: Chills, Fever Eyes: Denies: Eye discharge ENT: Denies: Congestion Respiratory: Denies: Cough Past Medical History - SOCIAL HISTORY Smoking Status: Former smoker Alcohol Use: None Drug Use: None - RESPIRATORY Hx Respiratory Disorders: Yes Hx Bronchitis: Yes Hx COPD: Yes Hx Dyspnea: Yes Comment:: Home oxygen - CARDIOVASCULAR Hx Cardio Disorders: Yes Hx Hypertension: Yes - NEURO Hx Neuro Disorders: No Comment:: patient states he has intermittent tremors - GI Hx GI Disorders: Yes Comment:: G-tube - Hx Genitourinary Disorders: Yes Comment:: new clay placed for retention - ENDOCRINE Hx Endocrine Disorders: No Hx Diabetes: No Hx Thyroid Disease: No - MUSCULOSKELETAL Hx Musculoskeletal Disorders: Yes Hx Gout: Yes Comment:: non compliant with medication/per patient - PSYCH Hx Psych Problems: No - HEMATOLOGY/ONCOLOGY Hx Hematology/Oncology Disorders: No Family Medical History Any Significant Family History?: Yes Hx Cancer: Father Hx Stroke: Mother Physical Exam - General General Appearance: Alert, Cooperative, No acute distress - Head Head exam: Atraumatic - Eye Eye exam: Normal appearance - Neck Neck exam: Normal inspection, Full ROM. negative: Tenderness - Respiratory Respiratory exam: Decreased breath sounds (chronic.) - Cardiovascular Cardiovascular Exam: Regular rate, Normal rhythm, Normal heart sounds - GI/Abdominal GI/Abdominal exam: Soft, Normal bowel sounds. negative: Rebound, Rigid, Tenderness - Extremities Extremities exam: Normal inspection, Full ROM, Normal capillary refill. negative: Tenderness - Neurological Neurological exam: Alert. negative: Motor sensory deficit - Psychiatric Psychiatric exam: negative: Anxious Course Vital Signs 08/19/19 07:11 Temperature 97.8 F Pulse Rate 54 L Respiratory 18 Rate Blood Pressure 132/98 Pulse Ox 93 L - Reevaluation(s) Reevaluation #1: We did attempt to replace the Clay catheter twice but were not successful. The patient has 200 cc's of urine in the bladder on bladder scanning and does not feel the need to void at this time. Due to that fact I will discuss the case with Urology and formulate a plan for the patient. 08/19/19 08:03 Reevaluation #2: The patient is stable at this time and ready for discharge. I did discuss the case with Dr. Carmona (Urology) and he does agree with the plan to discharge the patient to home and if he is unable to urinate later today he is to go to the ER at [facility] and see Urology for Clay placement. I also did discuss the case with Dr. Howell and he agrees with the plan. 08/19/19 08:16 Disposition Disposition: Discharge Clinical Impression: Malfunction of Clay catheter Qualifiers: Encounter type: initial encounter Qualified Code(s): T83.011A - Breakdown (mechanical) of indwelling urethral catheter, initial encounter Disposition: Home, Self-Care Condition: (2) Stable Instructions: Urinary Retention in Men (ED) Additional Instructions: Please attempt to urinate normally at home and if unable to please proceed to [facility] ER for further treatment. Forms: Patient Portal Access Time of Disposition: 08:13 Quality - Quality Measures Quality Measures: N/A - Blood Pressure Screening View Details: Yes Does Patient Have Any of the Following: Active Dx of HTN Blood Pressure Classification: Hypertensive Reading Systolic Measurement: 132 Diastolic Measurement: 98 Screening for High Blood Pressure: Patient Exclusion, Hx of HTN [G9744]
== END 2019-08-19 08:23 | disposition home or self-care (01) ==
LOC: ER 07:01
DX: T83.011A Breakdown (mechanical) of indwelling urethral catheter, initial encounter (principal); R31.0 Gross hematuria; I10 Essential (primary) hypertension; J44.9 Chronic obstructive pulmonary disease, unspecified; Z99.81 Dependence on supplemental oxygen
CPT/HCPCS: 51702; 99284

== ENCOUNTER 2019-10-21 09:35 | Observation (INO) | payer MEDICARE ==
--- NOTE | 2019-10-21 10:12 | Emergency Department Record ---
History of Present Illness - General Chief complaint: Weakness Stated complaint: AMB Time Seen by Provider: 10/21/19 09:54 Source: Patient, EMS, RN notes reviewed - History of Present Illness Initial comments: patient fell down and chould not get up and EMS called and transported to ED. 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 No injuries seen on exam and moving all four extremities and sitting up without pain in the spine and no pain on palpation of the spine. patient was at [facility] May 2019 and feeding tube placed and broke his hip November 2018. Patient is having difficulty with swallowing and feeding tube placed. Patient denies headache and speech is worse and he is sleeping most of the day. stated he has been getting slowly worse and today he fell and speech is much worse than usual and [facility] and his dr recommended hosp[facility] care but he refused to go into hospise care. Patient unable to walk at this time and yesterday said he was walking with a walker and that is how he fell. No pain on palpation of neck and no pain with moving his head around. He slowly ansers questions name correctly ,date is off said November but said francis is coming soon. location [facility]. said she can not take care of him if he is not ambulatory.PMH hypertension,copd - Related Data Allergies Allergy/AdvReac Type Severity Reaction Status Date / Time Penicillins Allergy PT UNSURE Verified 10/21/19 09:38 OF REACTION Review of Systems Reviewed: No additional complaints except as noted below Constitutional: Reports: As per HPI. Denies: Chills, Fever, Malaise, Night sweats, Weakness, Weight change Eyes: Reports: As per HPI. Denies: Eye discharge, Eye pain, Photophobia, Vision change ENT: Reports: As per HPI. Denies: Congestion, Dental pain, Ear pain, Epistaxis, Hearing loss, Throat pain Respiratory: Reports: As per HPI, Cough. Denies: Dyspnea, Hemoptysis, Stridor, Wheezes Cardiovascular: Reports: As per HPI. Denies: Arrhythmia, Chest pain, Dyspnea on exertion, Edema, Murmurs, Orthopnea, Palpitations, Paroxysmal nocturnal dyspnea, Rheumatic Fever, Syncope Endocrine: Reports: As per HPI. Denies: Fatigue, Heat or cold intolerance, Polydipsia, Polyuria Gastrointestinal: Reports: As per HPI. Denies: Abdominal pain, Constipation, Diarrhea, Hematemesis, Hematochezia, Melena, Nausea, Vomiting Genitourinary: Reports: As per HPI. Denies: Dysuria, Frequency, Hematuria, Incontinence, Retention, Testicular pain, Testicular mass, Urgency Musculoskeletal: Reports: As per HPI. Denies: Arthralgia, Back pain, Gout, Joint swelling, Myalgia, Neck pain Skin: Reports: As per HPI. Denies: Bruising, Change in color, Change in hair/nails, Lesions, Pruritus, Rash Neurological: Reports: As per HPI, Other (slurred speech). Denies: Abnormal gait, Confusion, Headache, Numbness, Paresthesias, Seizure, Tingling, Tremors, Vertigo, Weakness Psychiatric: Reports: As per HPI. Denies: Anxiety, Auditory hallucinations, Depression, Homicidal thoughts, Suicidal thoughts, Visual hallucinations Hematological/Lymphatic: Reports: As per HPI. Denies: Anemia, Blood Clots, Easy bleeding, Easy bruising, Swollen glands Past Medical History - SOCIAL HISTORY Smoking Status: Former smoker Drug Use: None - RESPIRATORY Hx Respiratory Disorders: Yes Hx Bronchitis: Yes Hx COPD: Yes Hx Dyspnea: Yes Comment:: Home oxygen - CARDIOVASCULAR Hx Cardio Disorders: Yes Hx Hypertension: Yes - NEURO Hx Neuro Disorders: No Comment:: patient states he has intermittent tremors - GI Hx GI Disorders: Yes Comment:: G-tube - Hx Genitourinary Disorders: Yes Comment:: new clay placed for retention - ENDOCRINE Hx Endocrine Disorders: No Hx Diabetes: No Hx Thyroid Disease: No - MUSCULOSKELETAL Hx Musculoskeletal Disorders: Yes Hx Gout: Yes Comment:: non compliant with medication/per patient - PSYCH Hx Psych Problems: No - HEMATOLOGY/ONCOLOGY Hx Hematology/Oncology Disorders: No Family Medical History Hx Cancer: Father Hx Stroke: Mother Physical Exam - General General Appearance: Alert, Oriented x3, Cooperative, No acute distress - Head Head exam: Normal inspection - Eye Eye exam: Normal appearance, PERRL Pupils: Normal accommodation - ENT ENT exam: Normal exam, Mucous membranes moist, Normal external ear exam, Normal orophraynx, TM's normal bilaterally Ear exam: Normal external inspection. negative: External canal tenderness Nasal Exam: Normal inspection. negative: Discharge, Sinus tenderness Mouth exam: Normal external inspection, Tongue normal Teeth exam: Normal inspection. negative: Dental caries Throat exam: Normal inspection. negative: Tonsillar erythema, Tonsillar exudate - Neck Neck exam: Normal inspection, Full ROM. negative: Tenderness - Respiratory Respiratory exam: Normal lung sounds bilaterally. negative: Respiratory distress - Cardiovascular Cardiovascular Exam: Regular rate, Normal rhythm, Normal heart sounds - GI/Abdominal GI/Abdominal exam: Soft, Normal bowel sounds. negative: Tenderness - Rectal Rectal exam: Deferred - exam: Deferred - Extremities Extremities exam: Normal inspection, Full ROM, Normal capillary refill. negative: Tenderness - Back Back exam: Reports: Normal inspection, Full ROM. Denies: Muscle spasm, Rash not ed, Tenderness - Neurological Neurological exam: Alert, Normal gait, Oriented X3, Reflexes normal - Psychiatric Psychiatric exam: Normal affect, Normal mood - Skin Skin exam: Dry, Intact, Normal color, Warm Course - Reevaluation(s) Reevaluation #1: primary Dr. Marisol Puentes and they are telling him he needs to go into hospise but he is not ready to do that. 10/21/19 14:51 Reevaluation #2: discussed care with the and she is in agreement with staying here to see if we can get him walking 10/21/19 16:26 Medical Decision Making - Data Complexity MDM Data: Labs Ordered and/or Reviewed (k 5.7), X-Ray Ordered and/or Reviewed (CT head chronic changes), EKG Ordered and/or Reviewed (NSR with PVC, no acute changes) - Lab Data Result diagrams: 10/21/19 11:05 10/21/19 12:38 Disposition Clinical Impression: Weakness, Slurred speech, DNR (do not resuscitate), Unable to ambulate COPD (chronic obstructive pulmonary disease) Qualifiers: COPD type: emphysema Emphysema type: panlobular Qualified Code(s): J43.1 - Panlobular emphysema Decision to Admit: Admit from ER Condition: (2) Stable Instructions: Weakness (ED) Forms: Patient Portal Access Time of Disposition: 16:25 Quality - Quality Measures Quality Measures: N/A - Blood Pressure Screening Does Patient Have Any of the Following: No, Active Dx of HTN Blood Pressure Classification: Hypertensive Reading Systolic Measurement: 124 Diastolic Measurement: 91 Screening for High Blood Pressure: Patient Exclusion, Hx of HTN [G9744]
[2019-10-21 11:12] LABS: ABSOLUTE NEUTROPHIL COUNT 8.12; BASO % 0.3 % (0-6); EOS % 1.7 % (0-6); GRAN % 70.5 % (47-80); HEMATOCRIT 41.7 % (42.0-52.0); HEMOGLOBIN 13.7 gm/dl (14.0-18.0); LYMPH % 16.4 % (16-45); MEAN CELL VOLUME 80.2 fl (81-97); MEAN CORPUSCULAR HEMOGLOBIN 26.3 pg (27-33); MEAN CORPUSCULAR HGB CONC 32.9 g/dl (32-36); MEAN PLATELET VOLUME 10.5 fl (7.4-10.4); MONO % 11.1 % (0-9); PLATELET COUNT 262 K/uL (130-400); RED CELL DISTRIBUTION WIDTH 16.1 % (11.5-14.5); WHITE BLOOD COUNT W/O DIFF 11.5 K/uL (4.2-12.2)
[2019-10-21 11:25] LABS: BLOOD UREA NITROGEN 21 mg/dL (8-23); CREATININE 0.9 mg/dL (0.7-1.2); EST GLOMERULAR FILTRATION RATE > 60 mL/min; TOTAL PROTEIN 7.3 g/dL (6.6-8.7)
[2019-10-21 11:27] LABS: GLUCOSE,RANDOM 104 mg/dL (74-109)
[2019-10-21 11:30] LABS: ALB/GLOB RATIO 0.9 (1.1-1.8); ALBUMIN 3.4 g/dL (4.0-5.0); ALKALINE PHOSPHATASE 90 U/L (40-129); ALT/SGPT 11 U/L (<41); AST/SGOT 29 U/L (10.0-50.0)
[2019-10-21] MEDS ORDERED: SPS 15 GM/60 ML PO STA (12:02)
[2019-10-21] MEDS ORDERED: 0.9 % SODIUM CHLORIDE 1000ML 1,000 ML IV ONE (12:57)
--- NOTE | 2019-10-21 15:36 | CT SCAN REPORT ---
EXAMINATION: CT Head without IV Contrast EXAM DATE: 10/21/2019 3:21 PM TECHNIQUE: Standard protocol CT images of the head were obtained without intravenous contrast. Lemons l and sagittal reconstructed images were created. INDICATION: slurred speech COMPARISON: CT brain March 26, 2019 HAND DOMINANCE: Unknown. ENCOUNTER: Not applicable FINDINGS: 1. There is no intracranial mass, midline shift, extraaxial fluid collection or hemorrhage. 2. The ventricles, sulci and cisterns are prominent consistent with mild diffuse cerebral atrophy.. 3. Mild areas of low-attenuation are seen in the periventricular white matter and subcortical white matter bilaterally. No loss of cooper-white matter differentiation or sulcal effacement to indicate acu te infarction. Moderate arterial calcifications are seen. 4. No depressed or widely calvarial fracture. 5. The visualized aspects of the orbits, paranasal sinuses, and mastoid air cells are normal. IMPRESSION: 1. No acute intracranial hemorrhage, mass lesion or mass effect. 2. Mild diffuse cerebral atrophy and chronic small vessel ischemia. Dictated by: Andrés Burnham MD on 10/21/2019 3:20 PM. .
[2019-10-21 16:18] LABS: URINE APPEARANCE CLEAR; URINE BILIRUBIN NEGATIVE (NEGATIVE); URINE BLOOD TRACE-I (NEGATIVE); URINE COLOR YELLOW; URINE GLUCOSE (UA) NEGATIVE (NEGATIVE); URINE KETONE NEGATIVE (NEGATIVE); URINE LEUKOCYTE ESTERASE NEGATIVE (NEGATIVE); URINE NITRITE NEGATIVE (NEGATIVE); URINE PROTEIN NEGATIVE (NEGATIVE); URINE UROBILINOGEN 0.2 E.U./dL (0.20 - 1.00)
[2019-10-21 16:25] LABS: URINE EPITHELIAL CELLS 0 - 2 (FEW); URINE RBC 0 - 2 (NONE SEEN); URINE WBC 0 - 2 (0-2/hpf)
[2019-10-21] MEDS: IPRATROPIUM/ALBUTEROL (0.5MG/3MG) NEB INH SCH ×2 (18:10→23:17)
--- NOTE | 2019-10-21 18:29 | RADIOLOGY REPORT ---
EXAMINATION: Single View Chest EXAM DATE: 10/21/2019 10:29 AM TECHNIQUE: Single view chest INDICATION: cough COMPARISON: CXR 07/12/2019 report only, CXR 05/19/2019 ENCOUNTER: Not applicable FINDINGS: Cardiomediastinal structures stable. Bilateral pulmonary fibrosis. Allowing for differences in techni que likely no significant interval change. No pneumothorax or pleural effusion. Multiple old left rib fractures. IMPRESSION: Allowing for differences in technique no significant interval change from 05/19/2019 Dictated by: Manuel Rai MD on 10/21/2019 6:24 PM. .
[2019-10-21] MEDS ORDERED: ACETAMINOPHEN 325 MG TAB PO PRN (18:50)
--- NOTE | 2019-10-21 21:05 | RADIOLOGY REPORT ---
EXAMINATION: Right Shoulder, Complete Minimum Two Views EXAM DATE: 10/21/2019 8:43 PM TECHNIQUE: AP, Grashey, and axillary INDICATION: right shoulder pain COMPARISON: None ENCOUNTER: Initial FINDINGS: Normal bony architecture. Avulsion fracture distal clavicle. AC arthrosis. Narrowing of the glenohume ral joint. Remaining bony structures appear intact. IMPRESSION: Avulsion fracture distal clavicle Dictated by: Manuel Rai MD on 10/21/2019 9:02 PM. .
[2019-10-22] MEDS: IPRATROPIUM/ALBUTEROL (0.5MG/3MG) NEB INH SCH ×5 (05:56→22:15)
[2019-10-22 07:58] LABS: BLOOD UREA NITROGEN 22 mg/dL (8-23); CREATININE 0.9 mg/dL (0.7-1.2); EST GLOMERULAR FILTRATION RATE > 60 mL/min
[2019-10-22 08:01] LABS: GLUCOSE,RANDOM 95 mg/dL (74-109)
[2019-10-22] MEDS ORDERED: ENOXAPARIN 40 MG/0.4 ML SYR SC SCH (10:00)
[2019-10-22] MEDS: AMLODIPINE BESYLATE 5MG TAB PO SCH (13:14)
[2019-10-23] MEDS: IPRATROPIUM/ALBUTEROL (0.5MG/3MG) NEB INH SCH ×4 (04:42→13:51)
[2019-10-23 08:49] LABS: BLOOD UREA NITROGEN 30 mg/dL (8-23); CREATININE 0.9 mg/dL (0.7-1.2); EST GLOMERULAR FILTRATION RATE > 60 mL/min
[2019-10-23 08:52] LABS: GLUCOSE,RANDOM 90 mg/dL (74-109)
[2019-10-23] MEDS: AMLODIPINE BESYLATE 5MG TAB PO SCH (09:17)
[2019-10-23] MEDS ORDERED: ENOXAPARIN 30 MG/0.3 ML SYR SQ SCH (10:00)
--- NOTE | 2019-10-23 12:26 | Rehab Evaluation ---
Patient Information - Patient Information Diagnosis: Weakness, unable to ambulate, fall Ordered Treatment: PT Evaluate and Treat Status: Initial Evaluation Past Medical/Surgical Hx: PAST MEDICAL/SURGICAL HISTORY Past Surgical History throat surgery hip surgery G-tube PMH - Respiratory Hx Respiratory Disorders Yes Hx Bronchitis Yes Hx Chronic Obstructive Yes Pulmonary Disease (COPD) Hx Dyspnea Yes Comment: Home oxygen PMH - Cardiovascular Hx Cardiovascular Disorders Yes Hx Hypertension Yes PMH - Neuro Hx Neurological Disorders No Comment: patient states he has intermittent tremors PMH - GI Hx Gastrointestinal Disorders Yes Comment: G-tube PMH - Hx Genitourinary Disorders Yes Comment: new clay placed for retention PMH - Endocrine Hx Endocrine Disorders No Hx Diabetes No Hx Thyroid Disease No PMH - Musculoskeletal Hx Musculoskeletal Disorders Yes Hx Gout Yes Comment: non compliant with medication/per patient PMH - Psych Hx Psychiatric Problems No PMH - Hematology/Oncology Hx Hematology/Oncology No Disorders Premorbid Status: Detail (Unable to obtain history from patient and family was not present.) Social History: Detail (Per rn case management Michelle who talked with patient's patient has stairs that were recently built with railings. Patient has had PT and speech in the past and was ambulating minimally.) Precautions: [place], Fall, Other (No precautions were charted re: R clavicular avulsion fracture.) - Time With Patient Total Time Spent With Patient (Min): 30 Treatment Procedures: Detail (Initial Evaluation low complexity. Gait training on levels and stairs.) Subjective Information - Subjective Information Per Patient (The patient was able to follow simple commands often with verbal and tactile cues. The patient did respond to questions and was able to verbalize short sentences. Patient denied pain of R shoulder/ clavicle region.) Objective Data - Mental Status Patient Orientation: Person - Visual Perception Deficit (The patient was not tracking objects and felt with his feet for the edge of the stairs.) - ROM Within normal limits (LE AROM was WFL,) - Strength/Tone Other (Unable to assess with use of manual resistance due to patient's cognitive status however functional the patient exhibited decreased bilateral LE strength ( was unable to complete hip march seated and ambulated with flexed hip and knees. The patient did tap both feet and completed bilateral knee extension through 25 % of range of motion.) The patient presented with L increased hip adductor tone when ambulating on levels and stairs.) - Bed Mobility Needs Assist (Moderate PA of 1 for supine to sit, sit to supine pt was independent with upper body and required maximal PA to lift LE's. Pt. required maximal PA of 2 to scoot up in bed.) - Transfers Independent (The patient required CG of 1 with sit to and from stand transfers. Pt. pulled up from walker and not chair despite verbal cues not too.) - Balance Balance Sitting: Fair (In a seated position unsupported ( on the edge of the bed) the patient leaned to the left.) Balance Standing: Poor (The patient required support of the walker to stand. The patient stood in a flexed position (trunk, hips and knees flexed.) - Gait Detail (The patient ambulated with front wheeled walker with 2 L of O2 and CG of 1 plus 1 following with wheelchair a distance of 45 feet x 1 and 20 feet x 1. The patient's gait pattern was characterized by a flexed position of bilateral hips, knees and trunk, increased L hip adduction and internal rotation, ankle inversion and plantar flexion during L swing phase ( extensor synergy pattern). L LE adductor pattern at times tripped patient during ambulation-especially after ambulating a longer distance. Patient required minimal PA to maintain his balance when the tripping occured. The patient ambulated on 3 steps with CG of 2 for safety using 2 railings. The patient ambulated with a reciprocal gait pattern and increased hip adduction when descending stairs.The patient felt for the steps with his feet due presumed visual deficit.) Therapy Assessment - Therapy Assessment Detail (The patient required assistance with bed mobility and CG with transfers. The patient was ambulatory with walker and able to ambulate on stairs with CG. Due to patient's gait pattern with increased hip adductor tone which causes patient to trip a times. The patient is not safe to ambulate without CG of 1. Per rn case management the patient has had PT several times in the past however due to recent fall patient may possible benefit from Home PT for family instruction in mobility and gaurding techniques.) Problem List - Problem List Physical Therapy Problem List: Detail (1) Impaired ambulation due to increased L LE tone during gait 2) Assistance with bed mobility 3) Assistance with transfers 4) Visual deficits) Goals - Goals Physical Therapy Goals: 1) CG/supervision with bed mobility. 2) The patient's family will exhibit good understanding of guarding patient during ambulation and transfers. Plan - Plan Physical Therapy Plan: PT to monitor patient's mobility daily until discharge from [facility]. Short term Home PT recommended to assess safety in patient's home and instruct pt. in fall prevention.
--- NOTE | 2019-10-23 12:36 | Discharge Note ---
VTE H&P Assessment - Risk for VTE Risk for VTE: Yes Risk Level: Moderate Risk Assessment Date: 10/22/19 Risk Assessment Time: 09:00 VTE Orders Placed or Will Be Placed: Yes Discharge Medications - Discharge Medications Prescriptions: Albuterol Sulfate [Proair Hfa] 1 - 2 puff IH .EVERY 4-6 HOURS PRN #1 inhaler PRN Reason: Difficulty In Breathing Home Medications: Ambulatory Orders Amlodipine Besylate 10 mg PO DAILY 01/21/15 [Last Taken 10/21/19] Acetaminophen [Tylenol 325Mg] 650 mg PO Q6H PRN tablet 10/23/19 [Last Taken Unknown] Albuterol Sulfate [Proair Hfa] 1 - 2 puff IH .EVERY 4-6 HOURS PRN #1 inhaler 10/23/19 [Last Taken Unknown] Amlodipine Besylate [Norvasc] 10 mg PO DAILY tab 10/23/19 [Last Taken Unknown] Discharge Note - Date Date of Discharge Note: 11/09/19 Disposition: Home, Self-Care Condition: (2) Stable Instructions: Weakness (ED) Additional Instructions: follow up with Dr. Neumann in one week or as soon as possible with the [facility] will contact you at home to have a nurse come out to see you once home. They can be reached 24/05 at [phone]. Prescriptions: Albuterol Sulfate [Proair Hfa] 1 - 2 puff IH .EVERY 4-6 HOURS PRN #1 inhaler PRN Reason: Difficulty In Breathing Referrals: ROSALIND NEUMANN [Primary Care Provider] - Forms: Patient Portal Access Activity at Discharge: Resume Usual Activities As Tolerated Diet at Discharge: Low Salt Diet
--- NOTE | 2019-10-23 12:50 | History and Physical Report ---
CHIEF COMPLAINT: Fall, weakness. Unable to walk. Slurred speech. 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 He has no pain in the spine and he did have some right shoulder pain. The patient was at [facility] May 2019. A feeding tube was placed because he was losing weight and not able to eat and this all started after his broke his hip in November 2018. He is having some difficulty with swallowing, and that is why the feeding tube is in. The patient denies headache. The family says his speech is about typical. It seemed a little slurred to me. He is sleeping most of the day, which is new according to the . He is progressively getting weaker. They have entertained the thought of going into hospice but he said no at this point. His family doctor, Dr. Neumann, recommended at this point they way he is progressing, he is neurologically deteriorating and he qualifies for hospice. He was unable to walk and get up off the cart for me, so he was admitted to the hospital for further evaluation. He also had an elevated potassium in the emergency department. Potassium was initially 6.3. I redrew it and it was 5.7. I gave him one dose of 15 g of Kayexalate. The patient was seen by me in the emergency department and admitted to the hospital for further evaluation, IV fluids, and monitoring of his potassium. In his feeding tube, he does get a feeding that does have potassium in it. This may be causing his potassium to go up. PAST MEDICAL HISTORY: Possibly a CVA with dysphagia; is not 100% sure. Hypertension, G-tube in place, COPD. PAST SURGICAL HISTORY: Right hip surgery from a fall/fracture November 2018 at [facility], throat surgery, G-tube was placed because he is not able to swallow. MEDICATIONS: Amlodipine 10 mg a day. ALLERGIES: PENICILLIN. SOCIAL HISTORY: No drugs or alcohol use at this time. He may have used alcohol heavily when he was younger. He is a former smoker. He stopped smoking in 2007. FAMILY HISTORY: Father had cancer. Mother had a stroke. REVIEW OF SYSTEMS: HEENT: No upper respiratory infection symptoms, cough, cold, or congestion. Cardiovascular: No chest pain, palpitations, or arrhythmia. Respiratory: He does have some wheezing and coughing and congestion. Difficulty clearing his throat. Sleep: He has been sleeping most the day according to the and then awake at night. Gastrointestinal: No nausea, vomiting, diarrhea, black stools, or bloody stools. Genitourinary: He has had problems with urinary retention, had to have a Patel but that was removed by Dr. Guan, his urologist. Musculoskeletal: He has weakness in his arms and legs. 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 Neurological: He may have had a previous stroke; the is not sure. Endocrine: No diabetes or thyroid disease. Integument: No rash, ulcers, change in moles, or yellow skin. PHYSICAL EXAMINATION: VITALS: Height 6 feet 1 inch, weight 126 pounds. Temperature 97.9, pulse 76, blood pressure 135/67, respiratory rate 20, pulse ox 95% on 2L O2. He uses home oxygen 2L all the time. He does have COPD. HEENT: Pupils are equal, round, and reactive to light and accommodation. Extraocular muscles are intact. Throat is clear. No redness. He does have congestion, and he has a hard time speaking, a hard time clearing his saliva. NECK: Supple. No jugular venous distention. No hepatojugular reflux. No carotid bruits. Thyroid is smooth. CARDIOVASCULAR: Regular rate and rhythm without murmurs, clicks, rubs, or gallops. RESPIRATORY: Breath sounds equal bilaterally. He does have wheezing and he has congestion in the upper airways. ABDOMEN: Soft, nontender. No hepatosplenomegaly, no masses. EXTREMITIES: No pitting edema. No cyanosis, no clubbing. Full range of motion of his arms. He is able to move his arms and legs to command. BREASTS: Normal male breasts. RECTAL: Deferred. GENITALIA: Deferred. NEUROLOGIC: He has slurred speech. He has a tremor when he is moving his arms and legs. MENTAL STATUS: Oriented to name and place but not time. He does answer questions very slowly with stuttering kind of speech. Seems to be oriented and alert enough to answer questions. SKIN: No lesions noted. IMPRESSION: 1. Weakness. 2. Hyperkalemia and one dose of Kayexalate given in the emergency department. 3. Chronic obstructive pulmonary disease. 4. Slurred speech. 5. Unable to ambulate. 6. Do Not Resuscitate. 7. His right distal clavicle fracture. After the patient was admitted to the hospital, Nursing called me and said he was complaining of right shoulder pain. An x-ray was obtained of his right shoulder which showed the right clavicle fracture nondisplaced. PLAN: Hydration. Monitor the potassium. Physical Therapy and OT to evaluate and treat to get him moving. MTDD
--- NOTE | 2019-10-23 13:28 | Rehab Evaluation ---
Patient Information - Patient Information Diagnosis: Weakness, unable to ambulate, fall, HTN Ordered Treatment: OT Evaluate and Treat Status: Initial Evaluation Past Medical/Surgical Hx: PAST MEDICAL/SURGICAL HISTORY Past Surgical History throat surgery hip surgery G-tube PMH - Respiratory Hx Respiratory Disorders Yes Hx Bronchitis Yes Hx Chronic Obstructive Yes Pulmonary Disease (COPD) Hx Dyspnea Yes Comment: Home oxygen PMH - Cardiovascular Hx Cardiovascular Disorders Yes Hx Hypertension Yes PMH - Neuro Hx Neurological Disorders No Comment: patient states he has intermittent tremors PMH - GI Hx Gastrointestinal Disorders Yes Comment: G-tube PMH - Hx Genitourinary Disorders Yes Comment: new clay placed for retention PMH - Endocrine Hx Endocrine Disorders No Hx Diabetes No Hx Thyroid Disease No PMH - Musculoskeletal Hx Musculoskeletal Disorders Yes Hx Gout Yes Comment: non compliant with medication/per patient PMH - Psych Hx Psychiatric Problems No PMH - Hematology/Oncology Hx Hematology/Oncology No Disorders Premorbid Status: Detail (Unable to obtain history from patient and family was not present.) Social History: Detail (Per showcase maker Michelle who talked with patient's patient has stairs that were recently built with railings. Patient has had PT and speech in the past and was ambulating minimally. His was completing all self cares for patient.) Precautions: [place], Fall, Other (No precautions were charted re: R clavicular avulsion fracture. Pt presented with decreased communication.) - Time With Patient Total Time Spent With Patient (Min): 35 Treatment Procedures: Detail (OT eval low complexity) Subjective Information - Subjective Information Other (Per Michelle, assistant case manager) Objective Data - Pain Pain Present: No (Pt did not c/o pain throughout eval) - Mental Status Patient Orientation: Person (Pt able to state his first name. His speech was very garbled and difficult to understand. He was able to respond with a head nod and follow most commands appropriately.) - Visual Perception Other (Unable to formally assess.) - ROM Not within normal limits (Pt actively moving kaela UEs although ROM not formally assessed. Right UE not tested at shoulder due to clavicle fracture.) - Strength/Tone Not within normal limits (Unable to formally assess due to decreased communication and right clavicle fracture. Pt moving kaela UEs against gravity functionally.) - Coordination Appears within normal limits for therapeutic activities - Bed Mobility Needs Assist (Mod assist for supine to sit and sit to supine.) - Transfers Needs Assist (CG assist for sit to stand from EOB and wheelchair heights.) - Balance Balance Sitting: Fair Balance Standing: Poor - Sensation Intact - Gait Detail (Pt ambulating short distance with 2 wheeled walker and CG assist x 2. See PT eval for details.) - ADL's/IADL's Detail (Pt is a total assist for all self cares at this time.) Therapy Assessment - Therapy Assessment Detail (Pt presents with significantly impaired mobility and self cares although this may be consistent with his premorbid status.) Problem List - Problem List Occupational Therapy Problem List: Detail (1. Decreased Ind with bed mobility. 2. Decreased Ind with functional self cares. 3. Decreased communication.) Goals - Goals Occupational Therapy Goals: 1. Pt will be Ind with supine to sit to EOB. 2. Pt will be Ind with oral hygiene after set up. 3. Pt will be able to communicate his needs verbally or using alternate communication method. Prognosis - Prognosis Moderate Plan - Plan Occupational Therapy Plan: Per nursing staff pt is discharging home with as she prefers to care for him at home. Pt may benefit from home OT to maximize his level of Ind with self cares.
--- NOTE | 2019-10-23 15:41 | Discharge Summary ---
DATE: 10/23/2019 ADDENDUM I talked to the . He does have albuterol and Spiriva inhalers at home, and I advised them to continue using those. Albuterol 2 puffs q.4 h., Spiriva once a day. She states that he does not like using them. Also uses home oxygen at 2L/min and he will need a potassium recheck because his potassium was elevated in the emergency department. It came down to the normal range at 4.3. Needs another repeat potassium. The feedings may have too much potassium in them. If it creeps back up again, it may need to be changed. DISCHARGE DIAGNOSES: 1. Weakness, resolving. 2. Hyperkalemia, resolved. 3. Difficulties with walking and walks with a walker because of degenerative neurologic disease and a past cerebrovascular accident, slurred speech. 4. Chronic obstructive pulmonary disease. 5. Do Not Resuscitate. 6. Right distal clavicle fracture, avulsion type, in good alignment. ATTENDING PHYSICIAN: Oc Yadav DO REASON FOR HOSPITALIZATION: This 73-year-old male presented to the emergency department falling down at home. EMS was called because the could not get him off the floor. He is very weak. He had a CVA sometime in the past. The is not really very definitive about timeframe. She says all the doctors are asking her if he has had a CVA but he really does not have a specific time that it happened. No injuries were seen on examination. He is moving all 4 extremities, sitting up without pain in his spine. He does have right shoulder pain and he has an avulsion clavicle fracture on the right distal clavicle. The patient went to [facility] in 2018. A feeding tube was placed because he was losing weight after his hip fracture in November 2018. He was having difficulties with swallowing. The gives him feedings 4 times a day through the feeding tube. The patient denies a headache but his speech is much worse according to the . There is concern he had a stroke. He had a head CT which was negative for any new abnormalities. He has chronic changes on the head CT. Also, the family has entertained hospice but the patient refused hospice. Because he was unable to walk, he was admitted to the hospital for further care, physical therapy, and hydration cautiously and following the potassium which was high at 5.6 in the emergency department. He had one dose of Kayexalate 15 g orally. His feeding has potassium in it and that could be the source for his potassium increase. We will have to follow that as an outpatient. SIGNIFICANT FINDINGS: Head CT. No acute changes. WBC 11,500, hemoglobin 13.7. Potassium initially was 6.3, repeating it was 5.7. He was given 15 g of Kayexalate and it came down to 4.3 on the day of discharge. His sodium was 145. Chloride is 100, BUN 30, creatinine 0.9, calcium 9.4. Urine was negative for any signs of infection. Chest x-ray with no significant changes from 05/19/2019. EKG showing sinus rhythm, no acute changes, PVCs. Shoulder x-ray shows an avulsion fracture of the distal right clavicle in good alignment. THERAPY PROVIDED: He was given cautious IV fluids and his normal medications. His potassium normalized. He was getting stronger. Physical Therapy walked with him and he was walking with his walker and he is able to go up and down stairs nicely. At this point, he is stable for discharge. He was an observation patient. Visiting nurses will be sent out for evaluation. He is to follow up with Dr. Neumann in 1 week or as soon as possible because of the holidays. No sling for the clavicle fracture because he needs to use his walker and I told him to keep his elbow at his side until the clavicle heals in 6 weeks. He is able to use his walker if he keeps his elbow to his side and uses the walker. CONDITION ON DISCHARGE: Improved but guarded because of his comorbid condition. DISCHARGE INSTRUCTIONS: Follow up with Dr. Neumann in 1 week. continue his amlodipine 10 mg a day, albuterol inhaler 2 puffs every 4 hours. He has oxygen at home at 2L/min nasal cannula. It seems like he probably has other inhalers at home but his did not give me that information. OSITO
--- NOTE | 2019-10-23 15:59 | Physical Therapy Tx Note ---
Physical Therapy Tx Note - Treatment Note Total Time Spent With Patient: 20 Physical Therapy Tx Note: Detail (The patient was seen with present. The patient was independent with bed mobility and sit to and from stand transfer. The patient ambulated with front wheeled walker 20 feet with observed. The patient's was noncommital as to if patient's mobility was the same as at home. The patient's stated patient ambulates on stairs using one railing and does well. The patient did not express concern about pt. going home. OT and PT recommended ongoing therapy services at home to improve functional status and for fall prevention.) Physical Therapy Problem List: Detail (1) Impaired ambulation due to increased L LE tone during gait 2) Assistance with bed mobility 3) Assistance with transfers 4) Visual deficits) Physical Therapy Goals: 1) CG/supervision with bed mobility. 2) The patient's family will exhibit good understanding of guarding patient during ambulation and transfers. Physical Therapy Plan: PT to monitor patient's mobility daily until discharge from [facility]. Short term Home PT recommended to assess safety in patient's home and instruct pt. in fall prevention.
== END 2019-10-23 15:38 | disposition home or self-care (01) ==
LOC: ER 09:35 → INTOOBSV 17:59 → UNDOADMIN 17:59 → MEDSURG 17:59
PROVIDERS: ADMIT Emergency Medicine; ATTEND Emergency Medicine
DX: J43.1 Panlobular emphysema (principal); I69.354 Hemiplegia and hemiparesis following cerebral infarction affecting left non-dominant side; I10 Essential (primary) hypertension; R26.2 Difficulty in walking, not elsewhere classified; J44.9 Chronic obstructive pulmonary disease, unspecified; W19.XXXA Unspecified fall, initial encounter; I69.328 Other speech and language deficits following cerebral infarction; M10.9 Gout, unspecified; G25.2 Other specified forms of tremor; Z99.81 Dependence on supplemental oxygen; Z96.0 Presence of urogenital implants; Z93.1 Gastrostomy status; Z87.891 Personal history of nicotine dependence; Z66 Do not resuscitate
CPT/HCPCS: 70450; 71045; 80048; 80053; 81001; 84132; 85025; 85730; 93005; 93010; 94640; 94761; 99217; 99220; 99285; J1650